=== PATIENT | male | born 1965 | race African-American/Black ===

== ENCOUNTER 2017-06-17 14:25 | Emergency (ER) | payer OTHER ==
[2017-06-17 14:51] VITALS: BP 136/85; PULSE 86; TEMP 98.2; BMI 31.0
--- NOTE | 2017-06-17 17:13 | PDOC ---
"History of Present Illness - General Chief Complaint: Pain Stated Complaint: SHOULDER PAIN Time Seen by Provider: 06/17/17 16:17 History Source: Patient Exam Limitations: No Limitations - History of Present Illness Initial Comments: 06/17/17 17:49 My chief complaint: Worsening neck and left shoulder pain History of present illness: Patient is a 52-year-old male with a history of hypertension and GERD today with complaints of worsening neck pain and left shoulder pain. Patient reports having surgery on his rotator cuff many years ago but pain has continued and is unrelieved by Naprosyn along with his neck pain of approximately 3 weeks. Patient reports that the pain from his neck is severe sharp radiates to the shoulder. Patient denies any radiation of pain down arms. His left arm or weakness. Patient reports going to see a neurologist on 06/15/2017 and was supposed to have an MRI of his neck soon along with some other tests that he does not remember with the names are. Patient is requesting something stronger for pain. 06/17/17 18:03 Timing/Duration: getting worse Severity: severe Associated Symptoms: reports: denies symptoms Past History - Past Medical History Allergies/Adverse Reactions: Allergies Allergy/AdvReac Type Severity Reaction Status Date / Time No Known Drug Allergies Allergy Verified 06/17/17 14:51 Home Medications: Ambulatory Orders Losartan Potassium 25 mg PO DAILY 08/01/15 Naproxen [Naprosyn -] 500 mg PO BID 06/17/17 Oxycodone HCl/Acetaminophen [Percocet 5-325 mg Tablet] 1 tab PO Q8H PRN #12 tablet MDD 3 06/17/17 Asthma: Yes Cardiac Disorders: No COPD: No Diabetes: No GI Disorders: Yes (GERD) Disorders: No HTN: Yes Kidney Stones: No Seizures: No - Surgical History Abdominal Surgery: No Appendectomy: No Cardiac Surgery: No Cholecystectomy: No Lung Surgery: No Neurologic Surgery: No Orthopedic Surgery: Yes (L shoulder sx 10/29 R ankle sx in 1997) - Reproductive History Testicular Surgery: No - Suicide/Smoking/Psychosocial Hx Smoking History: Current every day smoker Have you smoked in the past 12 months: Yes Number of Cigarettes Smoked Daily: 20 Information on smoking cessation initiated: Yes 'Breaking Loose' booklet given: 06/17/17 Hx Alcohol Use: No Drug/Substance Use Hx: No Substance Use Type: Cocaine, Marijuana Hx Substance Use Treatment: Yes (hx detox, rehab, in [facility]) Review of Systems - Review of Systems Able to Perform ROS?: Yes Constitutional: No: Symptoms Reported HEENTM: No: Symptoms Reported Respiratory: No: Symptoms reported Cardiac (ROS): No: Symptoms Reported ABD/GI: No: Symptoms Reported : No: Symptoms Reported Musculoskeletal: Yes: Joint Pain (left shoulder ), Neck Pain Integumentary: No: Symptoms Reported Neurological: No: Symptoms reported *Physical Exam - Vital Signs Last Vital Signs Temp Pulse Resp BP Pulse Ox 98.2 F 86 20 136/85 97 06/17/17 14:48 06/17/17 14:48 06/17/17 14:48 06/17/17 14:48 06/17/17 14:48 - Physical Exam General Appearance: Yes: Appropriately Dressed Neck: positive: Rigidity, Tender lateral (left ), Tender midline (proximal ). negative: Lymphadenopathy (R), Lymphadenopathy (L) Respiratory/Chest: positive: Lungs Clear, Normal Breath Sounds. negative: Chest Tender, Respiratory Distress Cardiovascular: positive: Regular Rhythm, Regular Rate, S1, S2 Integumentary: positive: Normal Color Neurologic: positive: Alert, Normal Response, Motor Strength 5/5 (b/l extremities), Respond to painful stimul (left arm ), Responsive. negative: Numbness, Sensory Deficit Medical Decision Making - Medical Decision Making 06/17/17 17:03 Patient is a 52-year-old male with a history of hypertension and GERD today with complaints of worsening neck pain and left shoulder pain. Patient reports having surgery on his rotator cuff many years ago but pain has continued and is unrelieved by Naprosyn along with his neck pain of approximately 3 weeks. Patient reports that the pain from his neck is severe sharp radiates to the shoulder. Patient denies any radiation of pain down arms. His left arm or weakness. Patient reports going to see a neurologist on 06/15/2017 and was supposed to have an MRI of his neck soon along with some other tests that he does not remember with the names are. Patient is requesting something stronger for pain. Neck pain left sided left shoulder pain PLAN: xray cervical no acute bessy abnormality noted percocet 5mg/325 mg one tab every 8 hrs prn severe pain only # 12 tabs This report was requested by: Jaelyn S Max | Reference #: [id number] There are no results for the search terms that you entered. Revise Search Terms Search Other States 2017 [facility] Department of Health - [place] [employer] 06/17/17 17:51 06/17/17 18:03 *DC/Admit/Observation/Transfer Diagnosis at time of Disposition: Cervical pain (neck), Chronic left shoulder pain - Discharge Dispostion Disposition: HOME Condition at time of disposition: Stable - Prescriptions Prescriptions: Oxycodone HCl/Acetaminophen [Percocet 5-325 mg Tablet] 1 tab PO Q8H PRN #12 tablet MDD 3 PRN Reason: Severe Pain - Referrals Referrals: Pearl Rose MD [Primary Care Provider] - Ciro Solano MD [Staff Physician] - - Patient Instructions Additional Instructions: Follow up with Your neurologist and orthopedist for further evaluation Avoid driving or doing anything that requires due to be alert when taking medication ordered for you today. Return to emergency room if symptoms worsen any numbness of her left arm or worsening pain or weakness of left arm Patient voiced understanding of discharge instructions and all questions were answered"
== END 2017-06-17 18:09 | disposition home or self-care (01) ==
LOC: JERFT 14:25
DX: M54.2 Cervicalgia (principal); M25.512 Pain in left shoulder; G89.29 Other chronic pain; I10 Essential (primary) hypertension; K21.9 Gastro-esophageal reflux disease without esophagitis; J45.909 Unspecified asthma, uncomplicated
CPT/HCPCS: 72050-TC; 99281-25

== ENCOUNTER 2017-09-02 14:56 | Emergency (ER) | payer OTHER ==
[2017-09-02 15:01] VITALS: BP 151/98; PULSE 99; TEMP 97.5; BMI 31.0
--- NOTE | 2017-09-02 15:44 | PDOC ---
History of Present Illness - General Chief Complaint: Ear Problem Stated Complaint: EAR PROBLEM Time Seen by Provider: 09/02/17 15:44 History Source: Patient Exam Limitations: No Limitations - History of Present Illness Initial Comments: 09/02/17 16:02 Patient came for evaluation of right ear pain 2 days. Denies fever, denies drainage, has suffered from a runny nose for the past few days. Is a smoker. has had problems in the past and had extensive ENT evaluation for months ago but was told there was no pathology to his ear and his chronic congestion was to be treated with nasal steroids. Patient has not used those sprays until yesterday. has pain, which is now radiating to his jaw and has some swelling to the right side of his neck/lymph nodes. Timing/Duration: unsure Severity: moderate Modifying Factors: improves with: cold therapy Associated Symptoms: reports: malaise. denies: fever/chills Past History - Past Medical History Allergies/Adverse Reactions: Allergies Allergy/AdvReac Type Severity Reaction Status Date / Time No Known Drug Allergies Allergy Verified 09/02/17 15:00 Home Medications: Ambulatory Orders Losartan Potassium 25 mg PO DAILY 08/01/15 Asthma: Yes Cardiac Disorders: No COPD: No Diabetes: No GI Disorders: Yes (GERD) Disorders: No HTN: Yes Kidney Stones: No Seizures: No - Surgical History Abdominal Surgery: No Appendectomy: No Cardiac Surgery: No Cholecystectomy: No Lung Surgery: No Neurologic Surgery: No Orthopedic Surgery: Yes (L shoulder sx 10/29 R ankle sx in 1997) - Reproductive History Testicular Surgery: No - Suicide/Smoking/Psychosocial Hx Smoking History: Current every day smoker Have you smoked in the past 12 months: Yes Number of Cigarettes Smoked Daily: 20 Information on smoking cessation initiated: No 'Breaking Loose' booklet given: 06/17/17 Hx Alcohol Use: No Drug/Substance Use Hx: No Substance Use Type: Cocaine, Marijuana Hx Substance Use Treatment: Yes (hx detox, rehab, in [facility]) *Physical Exam - Vital Signs Last Vital Signs Temp Pulse Resp BP Pulse Ox 97.5 F L 99 H 20 151/98 100 09/02/17 14:58 09/02/17 14:58 09/02/17 14:58 09/02/17 14:58 09/02/17 14:58 - Physical Exam General Appearance: Yes: Appropriately Dressed, Apparent Distress HEENT: positive: MARK, Normal ENT Inspection, Pharynx Normal, Rhinorrhea. negative: TMs Normal (right TM bulging, erythematous and unable to visualize landmarks. However TM is intact. Left TM is congested and landmarks visualized.) , Sinus Tenderness Neck: positive: Tender, Supple, Lymphadenopathy (R) Respiratory/Chest: positive: Lungs Clear Cardiovascular: positive: Regular Rate Extremity: positive: Normal Capillary Refill, Normal Inspection, Normal Range of Motion Integumentary: positive: Dry, Warm, Pale. 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, Fully Oriented, Alert, Normal Mood/ Affect, Normal Response, Motor Strength 5/5 *DC/Admit/Observation/Transfer Diagnosis at time of Disposition: Otitis media Qualifiers: Otitis media type: unspecified Chronicity: acute Qualified Code(s): H66.90 - Otitis media, unspecified, unspecified ear - Discharge Dispostion Disposition: HOME Condition at time of disposition: Stable Admit: No - Referrals Referrals: Pearl Rose MD [Primary Care Provider] - Estevan Avalos MD [Staff Physician] - - Patient Instructions Printed Discharge Instructions: Middle Ear Infection Additional Instructions: Rest, lots of fluids; water, teas, soups Saltwater girls and steamy showers Hot wet soaks to ear/hot packs may help relieve some pain Continue ibuprofen or Tylenol for pain and fevers Complete all antibiotics ear drops- 3 drops to affected ear 3 times a day for 5 days followup with private physician / ENT doctor in 2-3 days - Post Discharge Activity Forms/Work/School Notes: Back to Work
[2017-09-02] MEDS ORDERED: NEOMYCIN/POLYMYXN/HC OTIC SUSPENSION 10 ML BOTTLE AS ONE (16:01)
[2017-09-02] MEDS ORDERED: IBUPROFEN 600 MG TABLET (FP) PO ONE ×2 (16:02→16:04)
[2017-09-02] MEDS ORDERED: NEOMYCIN/POLYMYXN/HC OTIC SOLUTION 10 ML BOTTLE ONE (16:04)
== END 2017-09-02 16:24 | disposition home or self-care (01) ==
LOC: JERFT 14:56
DX: H66.91 Otitis media, unspecified, right ear (principal); I10 Essential (primary) hypertension; J45.909 Unspecified asthma, uncomplicated; K21.9 Gastro-esophageal reflux disease without esophagitis; F17.210 Nicotine dependence, cigarettes, uncomplicated
CPT/HCPCS: 99281-25

== ENCOUNTER 2018-02-15 07:37 | Emergency (ER) | payer OTHER ==
[2018-02-15 08:00] VITALS: BP 140/91; PULSE 72; TEMP 98; BMI 28.6
[2018-02-15] MEDS ORDERED: KETOROLAC TROMETHAMINE 60 MG/2 ML VIAL IM ONE (08:24)
[2018-02-15] MEDS ORDERED: KETOROLAC TROMETHAMINE 60 MG/2 ML VIAL ONE (08:28)
--- NOTE | 2018-02-15 08:30 | PDOC ---
History of Present Illness - General Chief Complaint: Head/Neck problem Stated Complaint: PAIN Time Seen by Provider: 02/15/18 08:15 History Source: Patient Exam Limitations: No Limitations - History of Present Illness Initial Comments: 02/15/18 17:46 c/o stiff neck woke up 2 days ago with same. pt with diff turning neck and pain to the left side going to shoulder. no chest pain denies headache or fever. Past History - Past Medical History Allergies/Adverse Reactions: Allergies Allergy/AdvReac Type Severity Reaction Status Date / Time No Known Drug Allergies Allergy Verified 02/15/18 07:54 Home Medications: Ambulatory Orders Losartan Potassium 25 mg PO DAILY 08/01/15 Cyclobenzaprine HCl [Flexeril -] 10 mg PO TID PRN #21 tablet 02/15/18 Asthma: Yes Cardiac Disorders: No COPD: No Diabetes: No GI Disorders: Yes (GERD) Disorders: No HTN: Yes Kidney Stones: No Seizures: No - Surgical History Abdominal Surgery: No Appendectomy: No Cardiac Surgery: No Cholecystectomy: No Lung Surgery: No Neurologic Surgery: No Orthopedic Surgery: Yes (L shoulder sx 10/29 R ankle sx in 1997) - Reproductive History Testicular Surgery: No - Suicide/Smoking/Psychosocial Hx Smoking History: Current every day smoker Have you smoked in the past 12 months: Yes Number of Cigarettes Smoked Daily: 20 Information on smoking cessation initiated: No 'Breaking Loose' booklet given: 06/17/17 Hx Alcohol Use: No Drug/Substance Use Hx: No Substance Use Type: Cocaine, Marijuana Hx Substance Use Treatment: Yes (hx detox, rehab, in [facility]) Review of Systems - Review of Systems Able to Perform ROS?: Yes Is the patient limited Syrian proficient: No Constitutional: No: Symptoms Reported HEENTM: No: Symptoms Reported Respiratory: No: Symptoms reported Cardiac (ROS): No: Symptoms Reported ABD/GI: No: Symptoms Reported : No: Symptoms Reported Musculoskeletal: Yes: Symptoms Reported *Physical Exam - Vital Signs Last Vital Signs Temp Pulse Resp BP Pulse Ox 98 F 72 16 140/91 96 02/15/18 07:54 02/15/18 07:54 02/15/18 07:54 02/15/18 07:54 02/15/18 07:54 - Physical Exam General Appearance: Yes: Nourished, Appropriately Dressed HEENT: positive: EOMI, MARK Neck: positive: Supple, Tender lateral (left side soft tissue tender, spasm noted to the posterior ) Respiratory/Chest: positive: Lungs Clear, Normal Breath Sounds Cardiovascular: positive: Regular Rhythm, Regular Rate Musculoskeletal: positive: Normal Inspection, Decreased Range of Motion, Muscle Spasm. negative: CVA Tenderness, CVA Tenderness (R), CVA Tenderness (L), Vertebral Tenderness Extremity: positive: Normal Capillary Refill, Normal Inspection, Normal Range of Motion Integumentary: positive: Normal Color, Dry, Warm Neurologic: positive: Fully Oriented, Alert, Normal Mood/Affect, Normal Response , Motor Strength 12/29 Medical Decision Making - Medical Decision Making 02/15/18 17:47 cc: stiff neck ttp soft tissue muscle spasm will give toradol dc with nsaid and flexeril *DC/Admit/Observation/Transfer Diagnosis at time of Disposition: Neck muscle strain Qualifiers: Encounter type: initial encounter Qualified Code(s): S16.1XXA - Strain of muscle, fascia and tendon at neck level, initial encounter - Discharge Dispostion Disposition: HOME Condition at time of disposition: Good - Prescriptions Prescriptions: Cyclobenzaprine HCl [Flexeril -] 10 mg PO TID PRN #21 tablet PRN Reason: Muscle Spasms - Referrals Referrals: Pearl Rose MD [Primary Care Provider] - - Patient Instructions Printed Discharge Instructions: DI for Muscle Strain Additional Instructions: apply warm compresses to the area of pain every 3-4hrs for 20 minutes take flexeril as directed for muscle spasm take the naprosyn for pain as directed - Post Discharge Activity
== END 2018-02-15 08:41 | disposition home or self-care (01) ==
LOC: JERFT 07:37
PROC: 3E0233Z Introduction of Anti-inflammatory into Muscle, Percutaneous Approach (ICD-10-PCS; principal; 2018-02-15)
DX: S16.1XXA Strain of muscle, fascia and tendon at neck level, initial encounter (principal); X58.XXXA Exposure to other specified factors, initial encounter; Y93.89 Activity, other specified; Y92.9 Unspecified place or not applicable; F17.210 Nicotine dependence, cigarettes, uncomplicated; K21.9 Gastro-esophageal reflux disease without esophagitis; I10 Essential (primary) hypertension; J45.909 Unspecified asthma, uncomplicated
CPT/HCPCS: 99281-25

== ENCOUNTER 2018-07-08 13:31 | Observation (INO) | payer OTHER ==
[2018-07-08 13:49] VITALS: BMI 28.3
[2018-07-08] MEDS ORDERED: ACETAMINOPHEN 325 MG TABLET (FP) PO ONE (14:23)
[2018-07-08] MEDS ORDERED: ACETAMINOPHEN 325 MG TABLET (FP) ONE (14:32)
--- NOTE | 2018-07-08 14:32 | PDOC ---
History of Present Illness - General Chief Complaint: Pain Stated Complaint: CHEST PAIN Time Seen by Provider: 07/08/18 14:03 History Source: Patient Exam Limitations: No Limitations - History of Present Illness Initial Comments: 07/08/18 16:03 This is a 53 year old male with a history of HTN, HLD, cocain and alcohol dependance (sober for three yrs), who presents with left anterior chest pain, pressure like, constant, with exertion and at rest for the past three days. Patient denies CERNA, blurry vision, sob, cough, pain with palpation of chest or movement, jaw pain, numbness, tingling, nausea, vomiting, abdominal pain, leg swelling, orthopnea. Take diclofenac daily for left shoulder pain from rotator cuff injury. Mother in age 60s with OR. PMH: HTN. 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 [employer] Past History - Past Medical History Allergies/Adverse Reactions: Allergies Allergy/AdvReac Type Severity Reaction Status Date / Time No Known Drug Allergies Allergy Verified 07/08/18 13:43 Home Medications: Ambulatory Orders Losartan Potassium 25 mg PO DAILY 08/01/15 Diclofenac Sodium [Voltaren -] 75 mg PO ASDIR 07/08/18 Gabapentin [Neurontin -] 600 mg PO HS 07/08/18 Omeprazole 40 mg PO DAILY 07/08/18 Pravastatin Sodium [Pravachol] mg PO HS 07/08/18 Asthma: Yes Cardiac Disorders: No COPD: No Diabetes: No GI Disorders: Yes (GERD) Disorders: No HTN: Yes Kidney Stones: No Seizures: No - Surgical History Abdominal Surgery: No Appendectomy: No Cardiac Surgery: No Cholecystectomy: No Lung Surgery: No Neurologic Surgery: No Orthopedic Surgery: Yes (L shoulder sx 10/29 R ankle sx in 1997) - Reproductive History Testicular Surgery: No - Suicide/Smoking/Psychosocial Hx Smoking History: Current every day smoker Have you smoked in the past 12 months: Yes Number of Cigarettes Smoked Daily: 20 Information on smoking cessation initiated: No 'Breaking Loose' booklet given: 06/17/17 Hx Alcohol Use: No Drug/Substance Use Hx: No Substance Use Type: Cocaine, Marijuana Hx Substance Use Treatment: Yes (hx detox, rehab, in [facility]) Review of Systems - Review of Systems Able to Perform ROS?: Yes Is the patient limited [place]orese proficient: No Constitutional: No: Chills, Diaphoresis, Fever, Loss of Appetite HEENTM: No: Blurred Vision Respiratory: No: Cough, Orthopnea, Shortness of Breath, Wheezing, Productive cough Cardiac (ROS): Yes: Chest Pain. No: Edema, Irregular Heart Rate, Lightheadedness, Palpitations, Syncope ABD/GI: No: Abdominal Distended, Blood Streaked Bowels, Constipated, Diarrhea, Nausea, Poor Appetite : No: Burning, Dysuria, Discharge Musculoskeletal: Yes: Back Pain, Joint Pain (left shoulder), Neck Pain (chronic) Neurological: No: Headache, Numbness, Paresthesia, Seizure, Weakness, Unsteady Gait *Physical Exam - Vital Signs Last Vital Signs Temp Pulse Resp BP Pulse Ox 98.1 F 80 18 149/102 H 99 07/08/18 13:48 07/08/18 13:48 07/08/18 13:48 07/08/18 13:48 07/08/18 13:48 - Physical Exam General Appearance: Yes: Appropriately Dressed. No: Alcohol on Breath, Intoxicated Respiratory/Chest: positive: Decreased Breath Sounds. negative: Rhonchi, Wheezing Cardiovascular: positive: Regular Rhythm, Regular Rate, S1, S2 Gastrointestinal/Abdominal: positive: Flat. negative: Tender Extremity: positive: Normal Inspection. 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 R/O ACS. Had stress test years ago that was negative. LEft shoulder pain seems not related to chest pain. #chest pain -cbc, bmp, cardiac profile -first trop negative -ecg nsr; no st-t- wave wave changes -given social history, risk factors and mother with sudden cardiac at age 60 form OR; will admit in observation; telemetry -cardiac consult; f/u second trop 07/08/18 16:20 *DC/Admit/Observation/Transfer Diagnosis at time of Disposition: Chest pain - Discharge Dispostion Condition at time of disposition: Fair Decision to Admit order: Yes - Referrals Referrals: Pearl Rose MD [Primary Care Provider] - - Patient Instructions - Post Discharge Activity
[2018-07-08 14:58] LABS: BASO % 0.8 % (0-2.0); EOS % 1.4 % (0-4.5); HEMATOCRIT 44.1 % (35.4-49); HEMOGLOBIN 14.7 GM/dL (11.7-16.9); LYMPH % 44.3 % (8-40); MCH 31.3 pg (25.7-33.7); MCHC 33.5 g/dl (32.0-35.9); MEAN CELL VOLUME 93.5 fl (80-96); MEAN PLT VOLUME 8.6 fl (7.5-11.1); MONO % 9.3 % (3.8-10.2); NEUT % 44.2 % (42.8-82.8); PLATELET COUNT 204 K/MM3 (134-434); RBC 4.71 M/mm3 (4.00-5.60); RDW 13.5 % (11.9-15.9); WHITE BLOOD COUNT 4.3 K/mm3 (4.0-10.0)
[2018-07-08 15:15] LABS: URINE APPEARANCE CLEAR; URINE BILIRUBIN NEGATIVE (<2.0 mg/dL); URINE COLOR LTYELLOW; URINE GLUCOSE (UA) NEGATIVE (NEGATIVE); URINE KETONE NEGATIVE (NEGATIVE); URINE LEUK ESTERASE NEGATIVE (NEGATIVE); URINE NITRITE NEGATIVE (NEGATIVE); URINE PROTEIN NEGATIVE (NEGATIVE); URINE UROBILINOGEN NEGATIVE mg/dL (0.2-1.0)
[2018-07-08] MEDS ORDERED: diazePAM 5 MG TABLET PO ONE (15:23)
[2018-07-08] MEDS ORDERED: DEXAMETHASONE SOD PHOSPHATE 20 MG/5 ML VIAL IVPB ONE (15:23)
--- NOTE | 2018-07-08 15:28 | PDOC ---
Attending Attestation - Resident Resident Name: Leslie Barriga - ED Attending Attestation I have performed the following: I have examined & evaluated the patient, The case was reviewed & discussed with the resident, I agree w/resident's findings & plan, Exceptions are as noted - HPI HPI: 07/08/18 15:24 53 yo M ho htn hld, chronic neck pain here today c/o worsenign neck shoulder pain and also chest pain. chest pain dull achy, left side, no radiation. has had for 3 days. left neck pain tension in trapezium, radiating to left arm. no new weakness , no new numbness. pain in neck is worse with moveemnt. has seen dr miller for this who does local injections in the past. states last was one month ago. does have h/o cocaine abuse, states last use was 3 yrs ago. did have a stress test many years ago. has family h/o luis felipe who from [place], DM in her 60's. - Physicial Exam PE: 07/08/18 15:26 awake alert lungs clear bilaterally heart rrr no mrg abd soft nt nd. ext wwp. left lateral trapezial spasm. 5/5 upper ext strength, sensation intact bilaterlly. alert oriented x 3. pulses upper and lower ext symmetric. skin warm and dry. - Medical Decision Making 07/08/18 15:27 differential acs, infection, vasospasm. tension radicular pain in trapezial muscle. nuerologically intact. plan muscle relaxer, steroids, ekg labs cxr. pt high risk and 3 risk facotrs ( smoking ht hld and family hx. ) will consider admission for obs tele.
[2018-07-08] MEDS ORDERED: DEXAMETHASONE SOD PHOSPHATE 10 MG/1 ML VIAL ONE (15:31)
[2018-07-08] MEDS ORDERED: diazePAM 5 MG TABLET ONE (15:32)
[2018-07-08 15:33] LABS: ALBUMIN 4.1 g/dl (3.4-5.0); ALK PHOS 79 U/L (45-117); ANION GAP 8 MMOL/L (8-16); BILIRUBIN,TOTAL 0.3 mg/dL (0.2-1); BLOOD UREA NITROGEN 18 mg/dL (7-18); CALCIUM 8.5 mg/dL (8.5-10.1); CHLORIDE 105 mmol/L (98-107); CO2 25 mmol/L (21-32); CREATININE 0.7 mg/dL (0.55-1.3); GLUCOSE,RANDOM 85 mg/dL (74-106); SGOT/AST 24 U/L (15-37); SGPT/ALT 60 U/L (13-61); SODIUM 138 mmol/L (136-145); TOT PROT 7.4 g/dl (6.4-8.2)
[2018-07-08 15:35] LABS: COCAINE, UR NEGATIVE ng/ml (CUTOFF=300); METHADONE, UR NEGATIVE ng/ml (CUTOFF=300); OPIATES, URI NEGATIVE ng/ml (CUTOFF=300); PHENCYCLIDINE,URINE NEGATIVE ng/ml (CUTOFF=25); URINE AMPHETAMINES NEGATIVE ng/ml (CUTOFF=500); URINE BARBITURATES NEGATIVE ng/ml (CUTOFF=200); URINE BENZODIAZEPINES NEGATIVE ng/ml (CUTOFF=200)
[2018-07-08] MEDS ORDERED: ASPIRIN 325 MG TABLET PO ONE (15:41)
[2018-07-08] MEDS ORDERED: ASPIRIN 325 MG ENTERIC COATED TABLET (FP) ONE (16:00)
--- NOTE | 2018-07-08 20:05 | HP ---
Admitting History and Physical - Primary Care Physician PCP: Brianna Hays - Admission History of Present Illness: 53 year old male with a history of HTN, HLD, cocain and alcohol dependance ( sober for three yrs), who presents with left anterior chest pain, pressure like , constant, with exertion and at rest for the past three days. Patient denies CERNA , blurry vision, sob, cough, pain with palpation of chest or movement, jaw pain , numbness, tingling, nausea, vomiting, abdominal pain, leg swelling, orthopnea. Take diclofenac daily for left shoulder pain from rotator cuff injury. Mother in age 60s with IA. - Past Medical History Cardiovascular: Yes: HTN, Hyperlipdemia - Smoking History Smoking history: Current every day smoker Have you smoked in the past 12 months: Yes Aproximately how many cigarettes per day: 20 - Alcohol/Substance Use Hx Alcohol Use: No Home Medications - Allergies Allergies/Adverse Reactions: Allergies Allergy/AdvReac Type Severity Reaction Status Date / Time No Known Drug Allergies Allergy Verified 07/08/18 13:43 - Home Medications Home Medications: Ambulatory Orders Losartan Potassium 25 mg PO DAILY 08/01/15 Diclofenac Sodium [Voltaren -] 75 mg PO ASDIR 07/08/18 Gabapentin [Neurontin -] 600 mg PO HS 07/08/18 Omeprazole 40 mg PO DAILY 07/08/18 Pravastatin Sodium [Pravachol] mg PO HS 07/08/18 Family Disease History - Family Disease History Family Disease History: Diabetes: Mother, Heart Disease: Mother Physical Examination Vital Signs: Vital Signs Temperature 98.1 F 07/08/18 13:48 Pulse Rate 83 07/08/18 19:32 Respiratory Rate 18 07/08/18 19:32 Blood Pressure 135/83 07/08/18 19:32 O2 Sat by Pulse Oximetry (%) 99 07/08/18 19:32 Constitutional: Yes: No Distress HENT: Yes: Atraumatic Neck: Yes: Supple Cardiovascular: Yes: Regular Rate and Rhythm Respiratory: Yes: CTA Bilaterally Gastrointestinal: Yes: Normal Bowel Sounds Extremities: Yes: WNL Edema: No Peripheral Pulses WNL: Yes Neurological: Yes: Alert, Oriented Labs: CBC, BMP 07/08/18 14:44 07/08/18 14:44 Imaging - Results X-ray: Report Reviewed Problem List - Problems (1) Chest pain Assessment/Plan: tele monitoring fu cardiac profile cardiology consult Code(s): R07.9 - CHEST PAIN, UNSPECIFIED (2) Alcohol dependence Assessment/Plan: will watch for withdrawl Code(s): F10.20 - ALCOHOL DEPENDENCE, UNCOMPLICATED (3) Cervical pain (neck) Assessment/Plan: chronic on pain meds prn Code(s): M54.2 - CERVICALGIA Assessment/Plan Laboratory Tests 07/08/18 07/08/18 07/08/18 14:44 14:44 14:44 WBC 4.3 RBC 4.71 Hgb 14.7 Hct 44.1 MCV 93.5 MCH 31.3 MCHC 33.5 RDW 13.5 Plt Count 204 MPV 8.6 Absolute Neuts (auto) 1.9 Neutrophils % 44.2 D Lymphocytes % 44.3 H D Monocytes % 9.3 Eosinophils % 1.4 D Basophils % 0.8 Nucleated RBC % 0 Sodium 138 Potassium 4.0 Chloride 105 Carbon Dioxide 25 Anion Gap 8 BUN 18 Creatinine 0.7 Creat Clearance w eGFR > 60 Random Glucose 85 Calcium 8.5 Total Bilirubin 0.3 AST 24 ALT 60 Alkaline Phosphatase 79 Creatine Kinase 222 Creatine Kinase Index 0.4 CK-MB (CK-2) < 1.0 Troponin I < 0.02 Total Protein 7.4 Albumin 4.1 Urine Color Ltyellow Urine Appearance Clear Urine pH 5.0 Ur Specific Hiram 1.015 Urine Protein Negative Urine Glucose (UA) Negative Urine Ketones Negative Urine Blood Negative Urine Nitrite Negative Urine Bilirubin Negative Urine Urobilinogen Negative Ur Leukocyte Esterase Negative Opiates Screen Methadone Screen Barbiturate Screen Phencyclidine Screen Ur Amphetamines Screen MDMA (Ecstasy) Screen Benzodiazepines Screen Cocaine Screen U Marijuana (THC) Screen 07/08/18 07/08/18 14:44 15:04 WBC RBC Hgb Hct MCV MCH MCHC RDW Plt Count MPV Absolute Neuts (auto) Neutrophils % Lymphocytes % Monocytes % Eosinophils % Basophils % Nucleated RBC % Sodium Potassium Chloride Carbon Dioxide Anion Gap BUN Creatinine Creat Clearance w eGFR Random Glucose Calcium Total Bilirubin AST ALT Alkaline Phosphatase Creatine Kinase Cancelled Creatine Kinase Index CK-MB (CK-2) Troponin I Cancelled Total Protein Albumin Urine Color Urine Appearance Urine pH Ur Specific Hiram Urine Protein Urine Glucose (UA) Urine Ketones Urine Blood Urine Nitrite Urine Bilirubin Urine Urobilinogen Ur Leukocyte Esterase Opiates Screen Negative Methadone Screen Negative Barbiturate Screen Negative Phencyclidine Screen Negative Ur Amphetamines Screen Negative MDMA (Ecstasy) Screen Negative Benzodiazepines Screen Negative Cocaine Screen Negative U Marijuana (THC) Screen Negative
[2018-07-08] MEDS ORDERED: GABAPENTIN 300 MG CAPSULE (FP) PO SCH (22:00)
[2018-07-08] MEDS: oxyCODONE HCL 5 MG TABLET PO PRN (22:07)
[2018-07-09] MEDS: oxyCODONE HCL 5 MG TABLET PO PRN (03:17)
[2018-07-09 06:41] LABS: BASO % 0.1 % (0-2.0); HEMATOCRIT 43.7 % (35.4-49); HEMOGLOBIN 14.7 GM/dL (11.7-16.9); LYMPH % 13.5 % (8-40); MCH 31.6 pg (25.7-33.7); MCHC 33.7 g/dl (32.0-35.9); MEAN CELL VOLUME 93.7 fl (80-96); MEAN PLT VOLUME 8.9 fl (7.5-11.1); MONO % 4.3 % (3.8-10.2); NEUT % 82.1 % (42.8-82.8); PLATELET COUNT 220 K/MM3 (134-434); RBC 4.66 M/mm3 (4.00-5.60); RDW 13.4 % (11.9-15.9); WHITE BLOOD COUNT 7.5 K/mm3 (4.0-10.0)
[2018-07-09 07:06] LABS: ALBUMIN 3.8 g/dl (3.4-5.0); ALK PHOS 73 U/L (45-117); ANION GAP 7 MMOL/L (8-16); BILIRUBIN,TOTAL 0.3 mg/dL (0.2-1); BLOOD UREA NITROGEN 17 mg/dL (7-18); CALCIUM 9.2 mg/dL (8.5-10.1); CHLORIDE 103 mmol/L (98-107); CO2 26 mmol/L (21-32); CREATININE 0.7 mg/dL (0.55-1.3); GLUCOSE,RANDOM 119 mg/dL (74-106); POTASSIUM 4.5 mmol/L (3.5-5.1); SGOT/AST 19 U/L (15-37); SGPT/ALT 55 U/L (13-61); SODIUM 135 mmol/L (136-145); TOT PROT 7.4 g/dl (6.4-8.2)
[2018-07-09 09:46] VITALS: PULSE 60; TEMP 98
[2018-07-09] MEDS ORDERED: LOSARTAN POTASSIUM 25 MG TABLET PO SCH (10:00)
--- NOTE | 2018-07-09 10:43 | CON.NEURO ---
Consult Consult Specialty:: Loyda Referred by:: PCP Reason for Consultation:: Pain - Past Medical History Cardio/Vascular: Yes: HTN, Hyperlipdemia - Alcohol/Substance Use Hx Alcohol Use: No - Smoking History Smoking history: Current every day smoker Have you smoked in the past 12 months: Yes Aproximately how many cigarettes per day: 20 Home Medications - Allergies Allergies/Adverse Reactions: Allergies Allergy/AdvReac Type Severity Reaction Status Date / Time No Known Drug Allergies Allergy Verified 07/08/18 13:43 - Home Medications Home Medications: Ambulatory Orders Losartan Potassium 25 mg PO DAILY 08/01/15 Diclofenac Sodium [Voltaren -] 75 mg PO ASDIR 07/08/18 Gabapentin [Neurontin -] 600 mg PO HS 07/08/18 Omeprazole 40 mg PO DAILY 07/08/18 Pravastatin Sodium [Pravachol] mg PO HS 07/08/18 Family Disease History - Family Disease History Family Disease History: Diabetes: Mother, Heart Disease: Mother Physical Exam-Neuro Vital Signs: Vital Signs Temperature 98 F 07/09/18 09:45 Pulse Rate 60 07/09/18 09:45 Respiratory Rate 20 07/09/18 09:45 Blood Pressure 140/82 07/09/18 09:45 O2 Sat by Pulse Oximetry (%) 98 07/08/18 20:30 Labs: CBC, BMP 07/09/18 05:30 07/09/18 05:30
--- NOTE | 2018-07-09 11:03 | PN ---
Progress Note (short form) - Note Progress Note: Chief Complaint: Events noted, notes reviewed, denies any further chest pain, complaining of persistent left shoulder discomfort History of Present Illness: Patient seen and examined on telemetry. Events noted, notes reviewed, denies any further chest pain, complaining of persistent left shoulder discomfort - Current Medication List Current Medications: Active Medications Current Medications Diclofenac Sodium (Voltaren -) 25 mg PO ONCE ONE Stop: 07/09/18 10:45 Gabapentin (Neurontin -) 600 mg PO HS COUNTS INCLUDE 234 BEDS AT THE [facility] Last Admin: 07/08/18 21:00 Dose: 600 mg Losartan Potassium (Cozaar -) 25 mg PO DAILY COUNTS INCLUDE 234 BEDS AT THE [facility] Last Admin: 07/09/18 09:44 Dose: 25 mg Oxycodone HCl (Roxicodone -) 10 mg PO Q6H PRN PRN Reason: PAIN Last Admin: 07/09/18 03:17 Dose: 10 mg - Review of Systems Constitutional: denies: Chills, Fever Cardiovascular: As noted above Respiratory: denies: Cough or Sputum Production Gastrointestinal: denies: Nausea, Vomiting, Diarrhea, Constipation or Abdominal Pain Genitourinary: denies: Dysuria, Hematuria Neurological: denies: Dizziness - Objective Vital Signs: Last Vital Signs Temp Pulse Resp BP Pulse Ox 98 F 60 20 140/82 98 07/09/18 09:45 07/09/18 09:45 07/09/18 10:43 07/09/18 09:45 07/09/18 10:43 Intake & Output 07/06/18 07/07/18 07/08/18 07/09/18 23:59 23:59 23:59 23:59 Weight 192 lb Neck: Supple Negative JVD Cardiovascular: S1 S2 Regularly Rate and Rhythm No Murmurs Respiratory: Clear to A&P Bilaterally Gastrointestinal: Soft Benign Normal Bowel Sounds Ext: No Edema Labs: CBC, BMP 07/09/18 05:30 07/09/18 05:30 Troponin, BNP 07/08/18 07/08/18 07/08/18 14:44 14:44 21:30 Troponin I < 0.02 Cancelled < 0.02 Assessment/Plan ASSESSMENT: 1. Chest pain syndrome atypical for coronary artery disease, angina pectoris 2. HTN 3. Hypercholesterolemia 4. Degenerative cervical disc disease with radiculopathy 5. Degenerative lumber disc disease with radiculopathy 6. Tobacco abuse 7. History of alcohol and drug abuse PLAN: 1. Continue Cozaar 2. Add B-Blockers 3. Add ASA 4. Add Lipitor 5. Counselled smoking cessation and abstinence 6. Can be D/C home from the cardiovascular point of view, further testing/ evaluation as outpatient including echocardiography and MPI study Thank you for the consult Faustino Mart MD
[2018-07-09] MEDS ORDERED: DICLOFENAC SODIUM 25 MG TABLET.DR PO ONE (11:30)
[2018-07-09] MEDS ORDERED: ASPIRIN COATED 81 MG TABLET.EC PO SCH (11:30)
[2018-07-09] MEDS ORDERED: metoPROLOL SUCCINATE 25 MG TAB.SR.24H (FP) PO SCH (11:30)
[2018-07-09] MEDS ORDERED: PT OWN MED DRAWER 7, Y5N ONE (11:43)
--- NOTE | 2018-07-09 11:47 | DS ---
Physical Examination Vital Signs: Vital Signs Temperature 98 F 07/09/18 09:45 Pulse Rate 60 07/09/18 09:45 Respiratory Rate 20 07/09/18 10:43 Blood Pressure 140/82 07/09/18 09:45 O2 Sat by Pulse Oximetry (%) 98 07/09/18 10:43 Constitutional: Yes: No Distress HENT: Yes: Atraumatic Neck: Yes: Supple Cardiovascular: Yes: Regular Rate and Rhythm Respiratory: Yes: CTA Bilaterally Gastrointestinal: Yes: Normal Bowel Sounds Extremities: Yes: WNL Edema: No Peripheral Pulses WNL: Yes Neurological: Yes: Alert, Oriented Labs: CBC, BMP 07/09/18 05:30 07/09/18 05:30 Discharge Summary Reason For Visit: CHEST PAIN Current Active Problems Chest pain (Acute) Condition: Fair - Instructions Referrals: Pearl Rose MD [Primary Care Provider] - Disposition: HOME - Home Medications Comprehensive Discharge Medication List: Ambulatory Orders Losartan Potassium 25 mg PO DAILY 08/01/15 Diclofenac Sodium [Voltaren -] 75 mg PO ASDIR 07/08/18 Gabapentin [Neurontin -] 600 mg PO HS 07/08/18 Omeprazole 40 mg PO DAILY 07/08/18 Pravastatin Sodium [Pravachol] mg PO HS 07/08/18 cleared by cardiology to be dc
[2018-07-09 11:56] VITALS: BP 133/87
--- NOTE | 2018-07-09 12:01 | CONS ---
DATE OF CONSULTATION: 07/09/2018 REQUESTING PHYSICIAN: Brianna Hays MD CHIEF COMPLAINT: Chest discomfort, cardiovascular evaluation. This is a 53-year-old male with known history of hypertensive cardiovascular disease, hypercholesterolemia, abnormal hemoglobin A1c by history, tobacco abuse, family history of coronary artery disease, degenerative cervical disk disease with cervical radiculopathy, degenerative lumbosacral disk disease with lumbar radiculopathy, degenerative left shoulder disease, who presented to [facility] Emergency Room with worsening left shoulder discomfort and, in addition, reported left-sided chest discomfort. Left shoulder discomfort was exacerbated with certain movements. Left chest discomfort was described as heaviness which was exacerbated by tobacco abuse and not by physical exertion. Patient denied any associated symptomatology, i.e. diaphoresis. Patient denies any dyspnea, orthopnea, paroxysmal nocturnal dyspnea, or peripheral edema. Patient denied any palpitations, dizziness, lightheadedness, or syncope. Patient denied any fatigue or tiredness. Currently, patient is symptom-free. PAST MEDICAL HISTORY: Hypertensive cardiovascular disease, hypercholesterolemia, abnormal hemoglobin A1c, degenerative lumbosacral disk disease with cervical radiculopathy, degenerative lumbosacral disk disease with lumbar radiculopathy, and degenerative left shoulder disease. PAST SURGICAL HISTORY: Shoulder surgery. SOCIAL HISTORY: A smoker. Prior history of drug and alcohol abuse. FAMILY HISTORY: Positive for coronary artery disease. ALLERGIES: None reported. MEDICAL THERAPY: Currently includes diclofenac 25 mg once a day, Neurontin 600 mg once a day, Cozaar 25 mg once a day, oxycodone 10 mg every 6 hours as needed. REVIEW OF SYSTEMS: Head and Neck: Denies headache, photophobia, blurring of vision. Respiratory: No cough or sputum production. Cardiovascular: As noted above. Gastrointestinal: Denies nausea, vomiting, diarrhea, abdominal discomfort. Genitourinary: No symptoms reported. Musculoskeletal: As noted above. PHYSICAL EXAMINATION: Vital Signs: Blood pressure 140/82 mmHg, pulse rate is 60 beats per minute, temperature 98 Fahrenheit. Head and Neck: Pupils equal and reactive to light and accommodation. Extraocular muscles are intact. Anicteric sclerae. Negative JVD. No bruit appreciated. Chest: Clear to auscultation and percussion. Cardiovascular: S1 and S2 regular. No murmur, clicks, or gallops. Abdomen: Soft, benign. Normoactive bowel sounds. Extremities: Negative edema. Intact distal pulses. No calf tenderness. Electrocardiogram revealed sinus, within normal limit. CPK and troponin-I levels were noted. CBC revealed a white cell count of 7.5, hemoglobin 14.7, platelet count 220. Basic metabolic profile revealed sodium 135, potassium 4.5, BUN 17, creatinine 0.7, glucose 119. ASSESSMENT: 1. Chest pain syndrome, atypical for coronary artery disease, angina pectoris with no evidence of acute coronary syndrome. 2. Hypertensive cardiovascular disease. 3. Hypercholesterolemia. 4. Degenerative cervical disk disease with cervical radiculopathy. 5. Degenerative lumbosacral disk disease with lumbar radiculopathy. 6. Tobacco abuse. 7. History of alcohol and drug abuse. RECOMMENDATION: 1. Continuation of Cozaar. 2. Addition of beta-blockers. 3. Addition of aspirin. 4. Addition of Lipitor. 5. Patient was strongly counseled smoking cessation and abstinence. 6. Patient can be discharged home from the cardiovascular point of view for further evaluation and testing as outpatient. Thank you for the kind referral. DAVID FALL M.D. [id number]
--- NOTE | 2018-07-09 16:33 | EKG ---
Test Reason : Blood Pressure : / mmHG Vent. Rate : 073 BPM Atrial Rate : 073 BPM P-R Int : 136 ms QRS Dur : 096 ms QT Int : 390 ms P-R-T Axes : 038 022 021 degrees QTc Int : 429 ms NORMAL SINUS RHYTHM NORMAL ECG WHEN COMPARED WITH ECG OF 30-SEP-2015 17:30, COMPARED TO EKG NO SIGNIFICANT CHANGE IS FOUND Confirmed by MD Becki, Oscar ([id number]) on 07/09/2018 4:33:00 PM Referred By: Confirmed By:Oscar Connell MD
[2018-07-09] MEDS ORDERED: ATORVASTATIN CA 20 MG TABLET (FP) PO SCH (22:00)
== END 2018-07-09 13:21 | disposition home or self-care (01) ==
LOC: JER 13:31 → JERBED 16:20 → J4W 20:39
PROVIDERS: ADMIT Internal Medicine; ATTEND Internal Medicine
PROC: 3E033NZ Introduction of Analgesics, Hypnotics, Sedatives into Peripheral Vein, Percutaneous Approach (ICD-10-PCS; principal; 2018-07-08)
DX: R07.9 Chest pain, unspecified (principal); I10 Essential (primary) hypertension; E78.5 Hyperlipidemia, unspecified; K21.9 Gastro-esophageal reflux disease without esophagitis; F17.210 Nicotine dependence, cigarettes, uncomplicated; M50.10 Cervical disc disorder with radiculopathy, unspecified cervical region; M51.16 Intervertebral disc disorders with radiculopathy, lumbar region; F10.21 Alcohol dependence, in remission; F14.21 Cocaine dependence, in remission
CPT/HCPCS: 36415; 71045-TC-FY; 80053; 80307; 81003; 82550; 82553; 84484; 85025; 93005; 93010; 96374; 99283-25; G0378

== ENCOUNTER 2018-10-13 05:01 | Emergency (ER) | payer OTHER ==
--- NOTE | 2018-10-13 05:24 | PDOC ---
History of Present Illness - General Stated Complaint: CHEST CONGESTION Time Seen by Provider: 10/13/18 05:23 - History of Present Illness Initial Comments: 10/13/18 05:47 53 yr old man with HTN, HLD, current everyday smoker, presents with productive cough with yellow sputum and midsternal "fullness" since a/w with night sweats since this morning. sick contact with cousin who was recently dx'd with flu(pt is unsure if it was by a dr). has short 1 episode of nonsustained tachycardia yesterday. denies n/v, fevers, abdominal pain, diarrhea, constipation, poor appetite, myalgia rash, sore throat. had cardiac cath 2 months ago that showed plaque, did not receive any stents pmhx: HTN, HLD, asthma, gerd Surghx: hernia repair, left rotator cuff soc hx: current everyday smoker, former cocaine and etoh use, last use 2014. works in [place] PCP: dr. remy Cardio: Dr. Dickson fmhx: [place] and DMII in parents age 60's Past History - Travel Traveled outside of the country in the last 30 days: No Close contact w/someone who was outside of country & ill: No - Past Medical History Allergies/Adverse Reactions: Allergies Allergy/AdvReac Type Severity Reaction Status Date / Time No Known Drug Allergies Allergy Verified 07/08/18 13:43 Home Medications: Ambulatory Orders Diclofenac Sodium [Voltaren -] 75 mg PO ASDIR 07/08/18 Gabapentin [Neurontin -] 600 mg PO HS 07/08/18 Omeprazole 40 mg PO DAILY 07/08/18 Aspirin [Ecotrin] 81 mg PO DAILY 10/13/18 Atorvastatin Calcium 40 mg PO HS 10/13/18 Losartan Potassium 100 mg PO DAILY 10/13/18 Asthma: Yes Cardiac Disorders: No COPD: No Diabetes: No GI Disorders: Yes (GERD) Disorders: No HTN: Yes Kidney Stones: No Seizures: No - Surgical History Abdominal Surgery: No Appendectomy: No Cardiac Surgery: No Cholecystectomy: No Lung Surgery: No Neurologic Surgery: No Orthopedic Surgery: Yes (L shoulder sx 10/29 R ankle sx in 1997) - Reproductive History Testicular Surgery: No - Suicide/Smoking/Psychosocial Hx Smoking History: Current every day smoker Have you smoked in the past 12 months: Yes Number of Cigarettes Smoked Daily: 20 'Breaking Loose' booklet given: 06/17/17 Hx Alcohol Use: No Drug/Substance Use Hx: No Substance Use Type: Cocaine, Marijuana Hx Substance Use Treatment: Yes (hx detox, rehab, in [facility]) Review of Systems - Review of Systems Constitutional: Yes: Night Sweats, Weight Stable. No: Chills, Fever, Loss of Appetite HEENTM: No: Ear Pain, Tinnitus, Throat Pain Respiratory: Yes: Productive cough. No: SOB with Exertion, Hemoptysis Cardiac (ROS): Yes: Palpitations, Chest Tightness. No: Chest Pain, Edema, Lightheadedness, Syncope ABD/GI: No: Nausea, Vomiting, Abdominal cramping : No: Dysuria, Hematuria Musculoskeletal: No: Muscle Pain, Muscle Weakness Integumentary: No: Erythema, Rash Neurological: No: Headache *Physical Exam - Physical Exam General Appearance: Yes: Appropriately Dressed HEENT: positive: EOMI, MARK, Pharynx Normal, Other (nares with dried mucus, voice sounds congested) Neck: positive: Normal Thyroid, Supple. negative: Lymphadenopathy (R), Lymphadenopathy (L), Thyromegaly Respiratory/Chest: positive: Lungs Clear, Normal Breath Sounds, Other (chest is nontender to palpation). negative: Crackles, Rhonchi, Wheezing Cardiovascular: positive: Regular Rhythm, Regular Rate, S1, S2. negative: Murmur Gastrointestinal/Abdominal: positive: Soft. negative: Tenderness Musculoskeletal: negative: CVA Tenderness Extremity: positive: Other (trace edema b/l LE). negative: Calf Tenderness Integumentary: negative: Clammy, Rash Neurologic: positive: Fully Oriented, Alert ED Treatment Course - LABORATORY CBC & Chemistry Diagram: 10/13/18 07:52 10/13/18 07:52 Medical Decision Making - Medical Decision Making 10/13/18 06:14 53 yr old man with HTN, current everyday smoker presents with chest congestion for past 3 days a/w night sweats. will check flu swab, cxy to r/o infiltrate, ekg given cardiac hx. will check one cardiac profile to r/o cardiac involvement(has HTN, HLD, and smokes, 3 risk factors) likely viral syndrome if cxy is unrevealing. 10/13/18 06:21 EKG without acute ischemic changes on my read, sinus kei with QTc of 421. 10/13/18 07:00 signout provided to oncoming resident, Dr. Rodriges to f/u on pending flu swab, and cardiac profile and disposition. *DC/Admit/Observation/Transfer Diagnosis at time of Disposition: Atypical chest pain, Elevated troponin - Discharge Dispostion Disposition: HOME Condition at time of disposition: Good - Referrals Referrals: Pearl Remy MD [Primary Care Provider] - - Patient Instructions Printed Discharge Instructions: DI for Atypical Chest Pain Additional Instructions: You were seen today for sensation of chest congestion in the center of your chest. Your xray did not show signs of pneumonia. Your initial blood work showed a slight elevation in your cardiac enzyme. The repeat cardiac enzyme test was negative. Your EKG was normal. Your chest pain is not likely to be related to your heart, but you should follow up with your e commerce solution architect within the next 3-4 days. You will need to call to make an appointment. A copy of your test results is attached to this packet. Take it with you to the appointment so your doctor can review it. Go to the nearest emergency department if your condition worsens or you feel like you need additional emergency evaluation. Print Language: VATICAN CITIZEN - Post Discharge Activity
--- NOTE | 2018-10-13 05:25 | PDOC ---
Attending Attestation - Resident Resident Name: Walter Perdomo - ED Attending Attestation I have performed the following: I have examined & evaluated the patient, The case was reviewed & discussed with the resident, I agree w/resident's findings & plan - HPI HPI: 10/13/18 06:34 Pt comes with chest pain.MSCP; non-susteained tachy x 1 last night He is 50+ a smoker, HTN and he complains that symptoms are ongoing for 24hrs. We will check a cardiac enzyme and CXR. - Physicial Exam PE: 10/13/18 07:05 Afebrile Agree with resident exam - Medical Decision Making 10/13/18 07:06 EKG normal CXR pending Cardiac profile pending Influenza swab pending
[2018-10-13 06:07] VITALS: BMI 29.5
--- NOTE | 2018-10-13 07:21 | PDOC ---
*Physical Exam - Vital Signs Last Vital Signs Temp Pulse Resp BP Pulse Ox 98.2 F 70 18 143/99 99 10/13/18 05:48 10/13/18 05:48 10/13/18 05:48 10/13/18 05:48 10/13/18 05:48 - Physical Exam General Appearance: Yes: Appropriately Dressed. No: Apparent Distress HEENT: positive: Normal Voice Neck: positive: Supple Respiratory/Chest: positive: Lungs Clear, Normal Breath Sounds. negative: Respiratory Distress Cardiovascular: positive: Regular Rhythm, Regular Rate. negative: Bradycardia, Tachycardia, Diastolic Murmur, Systolic Murmur ED Treatment Course - LABORATORY CBC & Chemistry Diagram: 10/13/18 07:52 10/13/18 07:52 - ADDITIONAL ORDERS Additional order review: Laboratory Results 10/13/18 06:06 Creatine Kinase 138 Troponin I 0.06 H Medical Decision Making - Medical Decision Making 10/13/18 07:00 Received sign out from resident Dr. Perdomo. In short, pt is a 53 y/ o male complaining of sensation of substernal chest full for the past day with a productive cough (yellow sputum). Active smoker. Cousin was diagnosed with influenza. EKG unremarkable for ectopy. Will follow up on influenza swab, CXR, and troponin. CXR unremarkable for acute cardiopulmonary process. CBC unremarkable for anemia or leukocytosis. BMP unremarkable for significant electrolyte derangement. Initial troponin mildly elevated. Repeat three hour troponin was negative. Normal renal function. Low suspicion for ACS given unchanged and normal EKG as well as recent reportedly normal cath. However, difficult to give cause to the initial troponin. Will admit for observation given risk factors. 10/13/18 10:15 Telephone consultation with Liyah Najera Attending. Verbally appraised of the pts HPI, ED course, and current plan of management. Does not feel this patient's condition warrants admission. Requests pt's acetaldehyde converter operator be consulted. 10/13/18 10:[address] Mccurdy, acetaldehyde converter operator covering for Dr. Mart. Verbally appraised of the pts HPI, ED course, and current plan of management. Given recent reportedly negative cardiac catheterization and negative repeat troponin, suspect the pt's symptoms are not likely to be ACS. Does not feel this pt would benefit from admission from a cardiac standpoint. Pt left department prior to receiving CXR. Called with question and encouraged to return for study. Pt returned. Image obtained. Pt provided reported. Again discussed imaging and laboratory results. Provided return precautions. Left department without further incident. *DC/Admit/Observation/Transfer Diagnosis at time of Disposition: Atypical chest pain, Elevated troponin - Discharge Dispostion Disposition: HOME Condition at time of disposition: Good Decision to Admit order: No - Referrals Referrals: Pearl Rose MD [Primary Care Provider] - - Patient Instructions Printed Discharge Instructions: DI for Atypical Chest Pain Additional Instructions: You were seen today for sensation of chest congestion in the center of your chest. Your xray did not show signs of pneumonia. Your initial blood work showed a slight elevation in your cardiac enzyme. The repeat cardiac enzyme test was negative. Your EKG was normal. Your chest pain is not likely to be related to your heart, but you should follow up with your acetaldehyde converter operator within the next 3-4 days. You will need to call to make an appointment. A copy of your test results is attached to this packet. Take it with you to the appointment so your doctor can review it. Go to the nearest emergency department if your condition worsens or you feel like you need additional emergency evaluation. Print Language: STATELESS - Post Discharge Activity
[2018-10-13] MEDS ORDERED: ASPIRIN 81 MG CHEWABLE TABLETS PO ONE (07:27)
[2018-10-13] MEDS ORDERED: ASPIRIN 81 MG CHEWABLE TABLETS ONE (07:45)
[2018-10-13 08:08] LABS: BASO % 0.7 % (0-2.0); EOS % 0.8 % (0-4.5); HEMOGLOBIN 15.3 GM/dL (11.7-16.9); LYMPH % 32.4 % (8-40); MCH 33.8 pg (25.7-33.7); MCHC 35.6 g/dl (32.0-35.9); MEAN PLT VOLUME 8.9 fl (7.5-11.1); MONO % 10.7 % (3.8-10.2); NEUT % 55.4 % (42.8-82.8); PLATELET COUNT 225 K/MM3 (134-434); RBC 4.53 M/mm3 (4.00-5.60); RDW 13.5 % (11.9-15.9); WHITE BLOOD COUNT 5.6 K/mm3 (4.0-10.0)
[2018-10-13 08:33] LABS: ANION GAP 5 MMOL/L (8-16); BLOOD UREA NITROGEN 23 mg/dL (7-18); CALCIUM 8.5 mg/dL (8.5-10.1); CHLORIDE 109 mmol/L (98-107); CO2 26 mmol/L (21-32); CREATININE 0.8 mg/dL (0.55-1.3); GLUCOSE,RANDOM 93 mg/dL (74-106); POTASSIUM 4.3 mmol/L (3.5-5.1); SODIUM 140 mmol/L (136-145)
[2018-10-13 09:21] VITALS: BP 125/82; PULSE 67; TEMP 98
--- NOTE | 2018-10-13 12:45 | EKG ---
Test Reason : Blood Pressure : / mmHG Vent. Rate : 076 BPM Atrial Rate : 076 BPM P-R Int : 134 ms QRS Dur : 092 ms QT Int : 398 ms P-R-T Axes : 044 017 017 degrees QTc Int : 447 ms NORMAL SINUS RHYTHM NORMAL ECG WHEN COMPARED WITH ECG OF 13-OCT-2018 06:54, NO SIGNIFICANT CHANGE WAS FOUND Confirmed by SEBAS SCOTT MD ([id number]) on 10/13/2018 12:44:53 PM Referred By: Confirmed By:SEBAS SCOTT MD
--- NOTE | 2018-10-13 12:46 | EKG ---
Test Reason : Blood Pressure : / mmHG Vent. Rate : 059 BPM Atrial Rate : 059 BPM P-R Int : 132 ms QRS Dur : 098 ms QT Int : 426 ms P-R-T Axes : 054 044 029 degrees QTc Int : 421 ms SINUS BRADYCARDIA OTHERWISE NORMAL ECG WHEN COMPARED WITH ECG OF 08-JUL-2018 13:49, NO SIGNIFICANT CHANGE WAS FOUND Confirmed by SEBAS SCOTT MD ([id number]) on 10/13/2018 12:46:24 PM Referred By: Confirmed By:SEBAS SCOTT MD
== END 2018-10-13 11:12 | disposition home or self-care (01) ==
LOC: JER 05:01
DX: R07.9 Chest pain, unspecified (principal); R74.8 Abnormal levels of other serum enzymes; I10 Essential (primary) hypertension; E78.5 Hyperlipidemia, unspecified; K21.9 Gastro-esophageal reflux disease without esophagitis; J45.909 Unspecified asthma, uncomplicated; F17.210 Nicotine dependence, cigarettes, uncomplicated; Z98.61 Coronary angioplasty status
CPT/HCPCS: 36415; 71046-TC-FY; 80048; 82550; 84484; 85025; 87804; 93005; 93010; 99284-25

== ENCOUNTER 2019-01-10 16:07 | Emergency (ER) | payer OTHER ==
--- NOTE | 2019-01-10 16:13 | PDOC ---
Rapid Medical Evaluation Chief Complaint: Injury Time Seen by Provider: 01/10/19 16:10 Medical Evaluation: Allergies Allergy/AdvReac Type Severity Reaction Status Date / Time No Known Drug Allergies Allergy Verified 07/08/18 13:43 01/10/19 16:10 I have performed a brief in-person evaluation of this patient. The patient presents with a chief complaint of: crush injury to right 3rd digit Pertinent physical exam findings: PAIN TO distal phalynx ~ 50% sugungal hematoma I have ordered the following: XraY [id number] FINGER The patient will proceed to the ED for further evaluation. 01/10/19 16:12
[2019-01-10 16:14] VITALS: BP 162/99; PULSE 94; TEMP 97.8; BMI 30.2
[2019-01-10] MEDS ORDERED: IBUPROFEN 400 MG TABLET (FP) PO ONE ×2 (16:53→16:55)
--- NOTE | 2019-01-10 17:04 | PDOC ---
History of Present Illness - General Chief Complaint: Injury Stated Complaint: INJURY TO FINGER Time Seen by Provider: 01/10/19 16:10 History Source: Patient - History of Present Illness Occurred: reports: just prior to arrival Pain Location: reports: upper extremity Method of Injury: Yes: direct blow Past History - Past Medical History Allergies/Adverse Reactions: Allergies Allergy/AdvReac Type Severity Reaction Status Date / Time No Known Drug Allergies Allergy Verified 01/10/19 16:21 Home Medications: Ambulatory Orders Diclofenac Sodium [Voltaren -] 75 mg PO ASDIR 07/08/18 Gabapentin [Neurontin -] 600 mg PO HS 07/08/18 Omeprazole 40 mg PO DAILY 07/08/18 Aspirin [Ecotrin] 81 mg PO DAILY 10/13/18 Atorvastatin Calcium 40 mg PO HS 10/13/18 Losartan Potassium 100 mg PO DAILY 10/13/18 Asthma: Yes Cardiac Disorders: No COPD: No Diabetes: No GI Disorders: Yes (GERD) Disorders: No HTN: Yes Kidney Stones: No Seizures: No - Surgical History Abdominal Surgery: No Appendectomy: No Cardiac Surgery: No Cholecystectomy: No Lung Surgery: No Neurologic Surgery: No Orthopedic Surgery: Yes (L shoulder sx 10/29 R ankle sx in 1997) - Reproductive History Testicular Surgery: No - Immunization History Immunization Up to Date: Yes - Suicide/Smoking/Psychosocial Hx Smoking History: Current every day smoker Have you smoked in the past 12 months: Yes Number of Cigarettes Smoked Daily: 10 Information on smoking cessation initiated: No 'Breaking Loose' booklet given: 06/17/17 Hx Alcohol Use: No Drug/Substance Use Hx: No Substance Use Type: Cocaine, Marijuana Hx Substance Use Treatment: Yes (hx detox, rehab, in [facility]) Trauma Specific PMHX - Complaint Specific PMHX Arthritis: Yes (LEFT SHOULDER) Back Injury: No Neck Injury: No Hx Sacro Iliac Joint Dysfunction: No Review of Systems - Review of Systems Musculoskeletal: Yes: Joint Swelling *Physical Exam - Vital Signs Last Vital Signs Temp Pulse Resp BP Pulse Ox 97.8 F 94 H 17 162/99 95 01/10/19 16:11 01/10/19 16:11 01/10/19 16:11 01/10/19 16:11 01/10/19 16:11 - Physical Exam General Appearance: Yes: Appropriately Dressed, Mild Distress HEENT: positive: Normal Voice Neck: positive: Supple Respiratory/Chest: negative: Respiratory Distress Extremity: positive: Other (50% subungal hematoma to L 3rd digit, no swelling/ deformity to finger, FROMI) Procedures - Nail Trephination Method of Drainage: nail cauterized Sterile Dressing Applied: Yes Finger Splint: No Medical Decision Making - Medical Decision Making 01/10/19 17:04 43-year-old male, no significant history here with crush injury to right third digit after metal wrench fell onto finger today. See exam Subungal hematoma XR neg for fx -pain control -immediate relief w/ nail trephination -local wound care -dc w/ OTC pain meds prn and wound check as needed *DC/Admit/Observation/Transfer Diagnosis at time of Disposition: Subungual hematoma of digit of hand Qualifiers: Encounter type: initial encounter Qualified Code(s): S60.10XA - Contusion of unspecified finger with damage to nail, initial encounter - Discharge Dispostion Disposition: HOME Condition at time of disposition: Good - Referrals - Patient Instructions Printed Discharge Instructions: DI for Subungual Hematoma Additional Instructions: You sustained injury to your nail bed, which caused blood to accumulate under your nail. A small hole was burned into your nail to allow the release of blood. There is a chance that you can lose this nail and if you do, it will take 3-4 months to regrow. Take Motrin for pain as needed. Return to ER for signs of redness, swelling, pus or fever - Post Discharge Activity
== END 2019-01-10 17:13 | disposition home or self-care (01) ==
LOC: JERFT 16:07
PROC: 0H9QXZZ Drainage of Finger Nail, External Approach (ICD-10-PCS; principal; 2019-01-10)
DX: S60.131A Contusion of right middle finger with damage to nail, initial encounter (principal); W27.8XXA Contact with other nonpowered hand tool, initial encounter; Y93.89 Activity, other specified; Y92.89 Other specified places as the place of occurrence of the external cause; Y99.8 Other external cause status
CPT/HCPCS: 73140-TC-RT-FY; 99281-25

== ENCOUNTER 2019-04-28 08:16 | Emergency (ER) | payer OTHER ==
[2019-04-28 08:32] VITALS: BP 144/93; PULSE 70; TEMP 98.2; BMI 29.2
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
== END 2019-04-28 12:25 | disposition home or self-care (01) ==
LOC: JERFT 08:16
DX: R19.7 Diarrhea, unspecified (principal); I10 Essential (primary) hypertension; E78.5 Hyperlipidemia, unspecified; K21.9 Gastro-esophageal reflux disease without esophagitis
CPT/HCPCS: 87045; 87046; 87177; 87209; 87324; 87449; 99281-25

== ENCOUNTER 2019-08-14 15:11 | Emergency (ER) | payer OTHER ==
[2019-08-14 15:29] VITALS: BP 159/99; PULSE 75; TEMP 98; BMI 28.8
--- NOTE | 2019-08-14 15:31 | PDOC ---
Rapid Medical Evaluation Chief Complaint: Pain Time Seen by Provider: 08/14/19 15:25 Medical Evaluation: Allergies Allergy/AdvReac Type Severity Reaction Status Date / Time No Known Drug Allergies Allergy Verified 04/28/19 08:29 08/14/19 15:25 I have performed a brief in-person evaluation of this patient. The patient presents with a chief complaint of:left groin -pain on and off x 2 weeks but worsening. Pertinent physical exam findings: walking slowly due to pain I have ordered the following: US groin The patient will proceed to the ED for further evaluation. 08/14/19 15:30 Discharge Disposition - Diagnosis Groin pain Qualifiers: Laterality: left Qualified Code(s): R10.32 - Left lower quadrant pain - Discharge Dispostion Condition at time of disposition: Stable - Referrals - Patient Instructions - Post Discharge Activity
--- NOTE | 2019-08-14 16:42 | PDOC ---
History of Present Illness - General Chief Complaint: Pain Stated Complaint: ABD PAIN Time Seen by Provider: 08/14/19 15:25 - History of Present Illness Initial Comments: 08/14/19 16:38 CHIEF COMPLAINT: testicular pain HISTORY OF PRESENT ILLNESS: 54 yo M presents to ED with pain to L testicle x 2 weeks. Patient states the pain has been intermittent but worsening with each episode of pain, with today being the worse. Pain is described as a "hot, burning, sharp, jolt." Patient states he saw his PCP Dr. Rose a few days ago and was told he did not have a hernia. He denies hematuria, unusual discharge, or any urinary symptoms. He does report remote history of STD "but many years ago when I as a little kid." He is sexually active but reports that he gets STD testing regularly with his PCP and has not had any STDs in decades, including at his most recent visit. Patient denies any pain when with palpation of testicles and denies any aggravating symptoms. He states at this time the pain is mild but when the pain returns it is 10/10. No recent travel or sick contacts. PAST MEDICAL HISTORY: Denies past medical history FAMILY HISTORY: Denies SOCIAL HISTORY: Denies tobacco, alcohol, illicit drug use. SURGICAL HISTORY: Denies ALLERGIES: No known drug allergies REVIEW OF SYSTEMS General/Constitutional: Denies fever or chills. Denies weakness, weight change. HEENT: Denies change in vision. Denies ear pain or discharge. Denies sore throat. Cardiovascular: Denies chest pain or shortness of breath. Respiratory: Denies cough, wheezing, or hemoptysis. Gastrointestinal: Denies nausea, vomiting, diarrhea or constipation. Denies rectal bleeding. Genitourinary: Intermittent pain to L testicle. Musculoskeletal: Denies joint or muscle swelling or pain. Denies neck or back pain. Skin and breasts: Denies rash or easy bruising. Neurologic: Denies headache, vertigo, loss of consciousness, or loss of sensation. Psychiatric: Denies depression or anxiety. PHYSICAL EXAM General Appearance: Well-appearing, appropriately dressed. No apparent distress , no intoxication. HEENT: EOMI, PERRLA, normal ENT inspection, normal voice, TMs normal, pharynx normal. No conjunctival pallor. No photophobia, scleral icterus. Neck: Supple. Trachea midline. No tenderness, rigidity, carotid bruit, stridor , lymphadenopathy, or thyromegaly. Respiratory/Chest: Lungs CTAB. No shortness of breath, chest tenderness, respiratory distress, accessory muscle use. No crackles, rales, rhonchi, stridor , wheezing, dullness Cardiovascular: RRR. S1, S2. No JVD, murmur, bradycardia, tachycardia. Vascular Pulses: Dorsalis-Pedis (R): 2+, Dorsalis-Pedis (L): 2+ Gastrointestinal/Abdominal: Normal bowel sounds. Abdomen soft, non-distended. No tenderness or rebound tenderness. No organomegaly, pulsatile mass, guarding , hernia, hepatomegaly, splenomegaly. Genitourinary: No penile discharge, swelling, or erythema. No scrotal swelling or tenderness. No appreciable inguina hernia b/l. Musculoskeletal/Extremities: Normal inspection. FROM of all extremities, normal capillary refill. Pelvis Stable. No CVA tenderness. No tenderness to extremities, pedal edema, swelling, erythema or deformity. Integumentary: Appropriate color, dry, warm. 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 Fully oriented, alert. Appropriate mood/affect. Motor strength 5/5. No appreciable EOM palsy, facial droop or sensory deficit. Past History - Past Medical History Allergies/Adverse Reactions: Allergies Allergy/AdvReac Type Severity Reaction Status Date / Time No Known Drug Allergies Allergy Verified 04/28/19 08:29 Home Medications: Ambulatory Orders Diclofenac Sodium [Voltaren -] 75 mg PO ASDIR 07/08/18 Gabapentin [Neurontin -] 600 mg PO HS 07/08/18 Omeprazole 40 mg PO DAILY 07/08/18 Aspirin [Ecotrin] 81 mg PO DAILY 10/13/18 Atorvastatin Calcium 40 mg PO HS 10/13/18 Losartan Potassium 100 mg PO DAILY 10/13/18 Sodium Chloride Nasal [place] [[place] Nasal [place] -] 2 spray NS TID #1 spraybtl 04/28/19 Asthma: Yes Cardiac Disorders: No COPD: No Diabetes: No GI Disorders: Yes (GERD) Disorders: No HTN: Yes Kidney Stones: No Seizures: No - Surgical History Abdominal Surgery: No Appendectomy: No Cardiac Surgery: No Cholecystectomy: No Lung Surgery: No Neurologic Surgery: No Orthopedic Surgery: Yes (L shoulder sx 10/29 R ankle sx in 1997) - Reproductive History Testicular Surgery: No - Immunization History Immunization Up to Date: Yes - Psycho Social/Smoking Cessation Hx Smoking History: Current every day smoker Have you smoked in the past 12 months: No Number of Cigarettes Smoked Daily: 20 Information on smoking cessation initiated: No 'Breaking Loose' booklet given: 06/17/17 Hx Alcohol Use: No Drug/Substance Use Hx: No Substance Use Type: Cocaine, Marijuana Hx Substance Use Treatment: Yes (hx detox, rehab, in [facility]) Abd/GI Specific PMHX - Complaint Specific PMHX Hepatitis: No Pancreatitis: No *Physical Exam - Vital Signs Last Vital Signs Temp Pulse Resp BP Pulse Ox 98.0 F 75 19 159/99 98 08/14/19 15:25 08/14/19 15:25 08/14/19 15:25 08/14/19 15:25 08/14/19 15:25 Medical Decision Making - Medical Decision Making 08/14/19 16:51 54 yo M presents to ED with pain to L testicle x 2 weeks. -UA -US ultrasound suggestive of b/l testicular microlithiasis 08/14/19 19:06 On-call urologist Jerry paged re: follow up time frame. 08/14/19 19:37 Patient states he does not want to wait any longer and will find follow up himself. Dr. Edwards paged again. Patient requests to leave and that he will find a urologist to f/u with teddy himself. Advised patient to take medication as prescribed and follow up with urology within the next 2 days. Advised patient of signs and symptoms for return to ED. Patient verbalized understanding and agrees to plan. Discharge - Discharge Information Problems reviewed: Yes Clinical Impression/Diagnosis: Testicular microlithiasis Condition: Stable Disposition: HOME - Admission No - Follow up/Referral Referrals: Pearl Rose MD [Primary Care Provider] - Jacob Edwards MD [Staff Physician] - Estevan Devi MD [Staff Physician] - - Patient Discharge Instructions Patient Printed Discharge Instructions: DI for Testicular Pain - Post Discharge Activity
[2019-08-14 17:53] LABS: PH,URINE 5.5 (5.0-8.0); URINE APPEARANCE CLEAR; URINE BILIRUBIN NEGATIVE (NEGATIVE); URINE COLOR YELLOW; URINE GLUCOSE (UA) NEGATIVE (NEGATIVE); URINE KETONE TRACE (NEGATIVE); URINE LEUK ESTERASE NEGATIVE (NEGATIVE); URINE NITRITE NEGATIVE (NEGATIVE); URINE PROTEIN NEGATIVE (NEGATIVE)
== END 2019-08-14 20:05 | disposition home or self-care (01) ==
LOC: JER 15:11
DX: N50.89 Other specified disorders of the male genital organs (principal)
CPT/HCPCS: 76856-TC; 76870-TC; 81003; 99281-25

== ENCOUNTER 2020-03-23 14:52 | Emergency (ER) | payer OTHER ==
[2020-03-23] MEDS ORDERED: DIPHTH,PERTUSS(ACELL),TET 0.5 ML DISP.SYRIN IM ONE ×2 (15:00→15:05)
--- NOTE | 2020-03-23 15:00 | PDOC ---
Rapid Medical Evaluation Time Seen by Provider: 03/23/20 14:58 Medical Evaluation: Allergies Allergy/AdvReac Type Severity Reaction Status Date / Time No Known Drug Allergies Allergy Verified 04/28/19 08:29 03/23/20 14:58 Pt reports cutting his scalp on a thi piece of metal this morning. States the bleeding has stopped, but he does not remember the date of his last tetanus shot. He is requesting one at this time. He has no other complaints Exam: puncture wound to scalp Orders: boostrix Pt to proceed to the ER for further evaluation Discharge Disposition - Diagnosis Need for vaccination - Referrals - Patient Instructions - Post Discharge Activity
[2020-03-23 15:03] VITALS: BP 130/94; PULSE 91; TEMP 98.1; BMI 41.3
--- NOTE | 2020-03-23 15:24 | PDOC ---
History of Present Illness - General Chief Complaint: Abrasion Stated Complaint: LACERATION Time Seen by Provider: 03/23/20 14:58 History Source: Patient Exam Limitations: No Limitations - History of Present Illness Initial Comments: 03/23/20 15:18 Patient is a 54-year-old male with a history of hypertension and prediabetes who presents to the ED with an abrasion to his head. The patient states he cut his head at work on a thi piece of metal earlier this morning. He states he was not concerned about the cut but is unsure of when his last tetanus booster was. He denies any fevers or chills. He denies any bleeding. He presents today for a Boostrix booster. Past History - Medical History Allergies/Adverse Reactions: Allergies Allergy/AdvReac Type Severity Reaction Status Date / Time No Known Drug Allergies Allergy Verified 04/28/19 08:29 Home Medications: Ambulatory Orders Diclofenac Sodium [Voltaren -] 75 mg PO ASDIR 07/08/18 Gabapentin [Neurontin -] 600 mg PO HS 07/08/18 Omeprazole 40 mg PO DAILY 07/08/18 Aspirin [Ecotrin] 81 mg PO DAILY 10/13/18 Atorvastatin Calcium 40 mg PO HS 10/13/18 Losartan Potassium 100 mg PO DAILY 10/13/18 Sodium Chloride Nasal [place] [[place] -] 2 spray NS TID #1 spraybtl 04/28/19 Asthma: Yes Cardiac Disorders: No COPD: No Diabetes: No GI Disorders: Yes (GERD) Disorders: No HTN: Yes Kidney Stones: No Seizures: No - Surgical History Abdominal Surgery: No Appendectomy: No Cardiac Surgery: No Cholecystectomy: No Lung Surgery: No Neurologic Surgery: No Orthopedic Surgery: Yes (L shoulder sx 10/29 R ankle sx in 1997) - Reproductive History Testicular Surgery: No - Immunization History Immunization Up to Date: Yes - Psycho-Social/Smoking History Smoking History: Never smoked Have you smoked in the past 12 months: No Number of Cigarettes Smoked Daily: 20 'Breaking Loose' booklet given: 06/17/17 - Substance Abuse Hx (Audit-C & DAST Scrn) How often the patient has a drink containing alcohol: Never Score: In Men: 4 or > Positive; In Women: 3 or > Positive: 0 Screen Result (Pos requires Nsg. Audit-10AR): Negative Review of Systems - Review of Systems Comments:: 03/23/20 15:19 - Review of Systems Able to Perform ROS?: Yes Constitutional: No: Fever, Chills, Loss of Appetite, Night Sweats, Weakness HEENTM: No: Eye Pain, Vision changes, Ear Pain, Throat Pain, Throat Swelling, Mouth Pain, Difficulty Swallowing Respiratory: No: Cough, Shortness of Breath, Wheezing, Sputum Production Cardiac (ROS): No: Chest Pain, Chest Tightness, Palpitations, Irregular Heart Beat, Edema ABD/GI: No: Nausea, Vomiting, Abdominal Pain, Diarrhea : No Dysuria, No Hematuria, No Frequency, No Urgency Musculoskeletal: No: Muscle Pain, Back Pain, Joint Pain, Muscle Weakness, Neck Pain Integumentary: No: Lesions, Rash: positive: Scalp abrasion Neurological: No: Headache, Numbness, Tingling, Weakness, Speech Difficulties *Physical Exam - Vital Signs Last Vital Signs Temp Pulse Resp BP Pulse Ox 98.1 F 91 H 20 130/94 100 03/23/20 15:01 03/23/20 15:01 03/23/20 15:01 03/23/20 15:01 03/23/20 15:01 - Physical Exam 03/23/20 15:20 - Physical Exam General Appearance: Nourished, Appropriately Dressed, No Distress HEENT: EOMI, Normal Voice, Hearing Grossly Normal Neck: Supple, No Lymphadenopathy (R), No Lymphadenopathy (L), No Rigidity, No Decreased range of motion Respiratory/Chest: Lungs Clear, Normal Breath Sounds. No Respiratory Distress, No Accessory Muscle Use Cardiovascular: Regular Rhythm, Regular Rate, S1, S2 Musculoskeletal: Normal Inspection. No Decreased Range of Motion Extremity: Normal Capillary Refill, Normal Inspection Integumentary: Normal Color, Dry. No Rash; 2 mm abrasion to the left parietal region without any active bleeding. Scab appreciated. No tenderness to palpation and no sign of infection. Neurologic: land title examiner II-XII NML intact, Fully Oriented, Alert, Normal Mood/Affect, Normal Response ED Treatment Course - Medications Given in the ED: ED Medications Discontinued Medications Generic Name Dose Route Start Last Admin Trade Name Freq PRN Reason Stop Dose Admin Diphtheria/Tetanus/Acell Pertussis 0.5 ml 03/23/20 15:00 03/23/20 15:09 Boostrix - IM 03/23/20 15:01 0.5 ml .ONCE ONE Administration Medical Decision Making - Medical Decision Making 03/23/20 15:21 Assessment: Patient is a 54-year-old male with an abrasion to his scalp that he sustained on a thi piece of metal, he is requesting a tetanus booster. Plan: -Abrasion cleaned with Betadine and saline -Boostrix ordered from triage -Patient stable for discharge Discharge - Discharge Information Problems reviewed: Yes Clinical Impression/Diagnosis: Need for vaccination, Need for tetanus booster, Scalp abrasion, non-infected Condition: Stable Disposition: HOME - Follow up/Referral - Patient Discharge Instructions Patient Printed Discharge Instructions: DI for Abrasion, DTaP Vaccine Additional Instructions: Keep wound clean and dry. Wash the wound once daily with warm water and soap. You got a tetanus booster today which is good for 5 to 10 years. Follow-up with your primary doctor within 1 to 2 days for repeat evaluation. - Post Discharge Activity
== END 2020-03-23 15:45 | disposition home or self-care (01) ==
LOC: JERFT 14:52
PROC: 3E0234Z Introduction of Serum, Toxoid and Vaccine into Muscle, Percutaneous Approach (ICD-10-PCS; principal; 2020-03-23)
DX: Z23 Encounter for immunization (principal)
CPT/HCPCS: 90715; 99283-25

== ENCOUNTER 2021-03-27 05:32 | Emergency (ER) | payer OTHER ==
[2021-03-27 05:45] VITALS: BP 134/79; PULSE 60; BMI 41.3
[2021-03-27] MEDS ORDERED: FAMOTIDINE 20 MG/50 ML IVPB 20 MG/50 ML MG IVPB ONE ×2 (05:49→06:08)
[2021-03-27] MEDS ORDERED: ACETAMINOPHEN 1000 MG/100 ML VIAL (NON FORMULARY) IVPB ONE (05:49)
[2021-03-27] MEDS ORDERED: SODIUM CHLORIDE 0.9% 1000 ML INFUS.BAG IV ONE (05:49)
[2021-03-27] MEDS ORDERED: MAG HYDROX/AL HYDROX/SIMETH -MYLANTA- ORAL SUSPENSION PO ONE (05:49)
[2021-03-27] MEDS ORDERED: ONDANSETRON 4 MG/2 ML VIAL IVPUSH ONE (06:07)
[2021-03-27] MEDS ORDERED: ONDANSETRON 4 MG/2 ML VIAL ONE (06:08)
[2021-03-27] MEDS ORDERED: ACETAMINOPHEN INJECTION 100 ML IVPB ONE (06:08)
[2021-03-27] MEDS ORDERED: MAG HYDROX/AL HYDROX/SIMETH 30 ML UNIT-DOSE CUP ONE (06:21)
[2021-03-27 06:37] VITALS: TEMP 98.8
[2021-03-27 07:20] LABS: BASO % 0.2 % (0-2.0); EOS % 0.1 % (0-4.5); HEMATOCRIT 49.6 % (35.4-49); HEMOGLOBIN 17.1 GM/dL (11.7-16.9); LYMPH % 15.5 % (8-40); MCHC 34.6 g/dl (32.0-35.9); MEAN CELL VOLUME 92.7 fl (80-96); MONO % 12.7 % (3.8-10.2); NEUT % 71.5 % (42.8-82.8); PLATELET COUNT 227 10^3/uL (134-434); RBC 5.35 M/mm3 (4.00-5.60)
[2021-03-27 07:36] LABS: BLOOD UREA NITROGEN 17.6 mg/dL (7-18)
[2021-03-27 07:39] LABS: CREATININE 1.1 mg/dL (0.55-1.3)
[2021-03-27 07:40] LABS: BILIRUBIN,TOTAL 0.7 mg/dL (0.2-1); TOT PROT 8.1 g/dl (6.4-8.2)
[2021-03-27 08:13] LABS: URINE APPEARANCE CLEAR; URINE BILIRUBIN NEGATIVE (NEGATIVE); URINE COLOR YELLOW; URINE GLUCOSE (UA) NEGATIVE (NEGATIVE); URINE KETONE 2+ (NEGATIVE); URINE LEUK ESTERASE NEGATIVE (NEGATIVE); URINE NITRITE NEGATIVE (NEGATIVE); URINE PROTEIN TRACE (NEGATIVE)
== END 2021-03-27 09:55 | disposition home or self-care (01) ==
LOC: JER 05:32
PROC: 3E033GC Introduction of Other Therapeutic Substance into Peripheral Vein, Percutaneous Approach (ICD-10-PCS; principal; 2021-03-27)
DX: R10.33 Periumbilical pain (principal); R11.2 Nausea with vomiting, unspecified; R19.7 Diarrhea, unspecified
CPT/HCPCS: 36415; 74177-TC; 80053; 81003; 83690; 84132; 85025; 87086; 99285-25; J0131; Q9967

== ENCOUNTER 2022-06-19 16:10 | Emergency (ER) | payer OTHER ==
[2022-06-19 17:04] VITALS: BP 132/77; PULSE 66; RESP 20; TEMP 98.7; BMI 28.0
[2022-06-19] MEDS ORDERED: ALBUTEROL SO4 2.5/IPRATROPIUM 0.5 INH SOL 3 ML VIAL.NEB. NEB ONE (17:43)
== END 2022-06-19 19:46 | disposition home or self-care (01) ==
LOC: JER 16:10
DX: J45.40 Moderate persistent asthma, uncomplicated (principal); J06.9 Acute upper respiratory infection, unspecified
CPT/HCPCS: 71046-TC-FY; 99283-25

== ENCOUNTER 2022-07-04 14:05 | Emergency (ER) | payer OTHER ==
[2022-07-04 14:21] VITALS: BP 136/90; PULSE 75; RESP 18; TEMP 98.1; BMI 28.0
[2022-07-04] MEDS ORDERED: SODIUM CHLORIDE 1,000 ML IV STA (15:45)
[2022-07-04 16:19] LABS: HEMATOCRIT 44.3 % (35.4-49); HEMOGLOBIN 15.5 G/dL (11.7-16.9); MCH 32.7 pg (25.7-33.7); MCHC 34.9 g/dl (32.0-35.9); MEAN CELL VOLUME 93.7 fl (80-96); MEAN PLT VOLUME 8.6 fl (7.5-11.1); RBC 4.73 10^6/uL (4.00-5.60); RDW 13.8 % (11.9-15.9); WHITE BLOOD COUNT 4.9 10^3/uL (4.0-10.8)
[2022-07-04 16:20] LABS: BILIRUBIN,TOTAL 0.7 mg/dl (0.2-1); CALCIUM 9.2 mg/dl (8.5-10); CREATININE 0.9 mg/dl (0.55-1.3); TOT PROT 6.9 g/dl (6.4-8.2)
[2022-07-04 16:54] LABS: PLATELET ESTIMATE ADEQUATE
== END 2022-07-04 16:45 | disposition home or self-care (01) ==
LOC: FER 14:05
PROC: 3E0337Z Introduction of Electrolytic and Water Balance Substance into Peripheral Vein, Percutaneous Approach (ICD-10-PCS; principal; 2022-07-04)
DX: R35.89 Other polyuria (principal)
CPT/HCPCS: 36415; 80053; 81003; 85025; 87086; 99284-25

== ENCOUNTER 2022-09-07 06:28 | Emergency (ER) | payer OTHER ==
[2022-09-07 06:40] VITALS: RESP 18; TEMP 98.3; BMI 28.0
[2022-09-07 06:47] VITALS: BP 137/77; PULSE 69
[2022-09-07 08:01] LABS: HEMATOCRIT 42.7 % (35.4-49); HEMOGLOBIN 14.5 G/dL (11.7-16.9); MCH 32.2 pg (25.7-33.7); MCHC 33.8 g/dl (32.0-35.9); MEAN CELL VOLUME 95.2 fl (80-96); MEAN PLT VOLUME 8.8 fl (7.5-11.1); PLATELET COUNT 236.1 10^3/uL (134-434); RBC 4.49 10^6/uL (4.00-5.60); WHITE BLOOD COUNT 4.1 10^3/uL (4.0-10.8)
[2022-09-07 08:22] LABS: ALBUMIN 3.8 g/dl (3.4-5.0); BILIRUBIN,TOTAL 0.7 mg/dl (0.2-1); CALCIUM 8.7 mg/dl (8.5-10); TOT PROT 6.4 g/dl (6.4-8.2)
[2022-09-07 09:05] LABS: PLATELET ESTIMATE ADEQUATE
== END 2022-09-07 07:50 | disposition left against medical advice (07) ==
LOC: FER 06:28
DX: R07.89 Other chest pain (principal)
CPT/HCPCS: 36415; 80053; 81003; 84484; 85027; 93005; 99284-25

== ENCOUNTER 2022-09-11 06:59 | Emergency (ER) | payer OTHER ==
[2022-09-11 07:09] VITALS: BP 150/97; PULSE 74; RESP 16; TEMP 98; BMI 28.0
[2022-09-11] MEDS ORDERED: ALBUTEROL SO4 2.5/IPRATROPIUM 0.5 INH SOL 3 ML VIAL.NEB. NEB ONE ×3 (07:20→07:22)
[2022-09-11] MEDS ORDERED: predniSONE 20 MG TABLET (UD) PO ONE (07:21)
[2022-09-11] MEDS ORDERED: predniSONE 20 MG TABLET (UD) ONE (07:22)
== END 2022-09-11 09:08 | disposition home or self-care (01) ==
LOC: FER 06:59
PROC: 3E0F7GC Introduction of Other Therapeutic Substance into Respiratory Tract, Via Natural or Artificial Opening (ICD-10-PCS; principal; 2022-09-11)
DX: J45.909 Unspecified asthma, uncomplicated (principal)
CPT/HCPCS: 71046-TC-FY; 93005; 99285-25; C9803-CS; U0003; U0005

== ENCOUNTER 2023-01-17 08:09 | Emergency (ER) | payer OTHER ==
[2023-01-17 08:20] VITALS: BP 175/100; PULSE 90; RESP 20; TEMP 98.7; BMI 28.8
[2023-01-17 09:19] LABS: HEMATOCRIT 46.1 % (35.4-49); HEMOGLOBIN 15.7 G/dL (11.7-16.9); MCH 32.7 pg (25.7-33.7); MCHC 34.1 g/dl (32.0-35.9); MEAN CELL VOLUME 95.8 fl (80-96); MEAN PLT VOLUME 8.5 fl (7.5-11.1); PLATELET COUNT 208.2 10^3/uL (134-434); RBC 4.81 10^6/uL (4.00-5.60); RDW 13.7 % (11.9-15.9); WHITE BLOOD COUNT 5.2 10^3/uL (4.0-10.8)
[2023-01-17 09:26] LABS: ALBUMIN 4.4 g/dl (3.4-5.0); BILIRUBIN,TOTAL 0.3 mg/dl (0.2-1); CALCIUM 9.3 mg/dl (8.5-10); CREATININE 0.8 mg/dl (0.55-1.3); POTASSIUM 3.7 mmol/L (3.5-5.1); TOT PROT 7.5 g/dl (6.4-8.2)
[2023-01-17 09:30] LABS: PLATELET ESTIMATE ADEQUATE
== END 2023-01-17 09:48 | disposition home or self-care (01) ==
LOC: FER 08:09
DX: R05.9 Cough, unspecified (principal); R09.81 Nasal congestion; R07.89 Other chest pain; B34.9 Viral infection, unspecified; Z20.822 Contact with and (suspected) exposure to COVID-19
CPT/HCPCS: 0241U-QW; 36415; 71045-TC-FY; 80053; 84484; 85027; 93005; 99285-25

== ENCOUNTER 2024-04-07 17:51 | Inpatient (IN) | payer OTHER ==
[2024-04-07 18:21] VITALS: BMI 26.6
[2024-04-07] MEDS ORDERED: BISMUTH SUBSALICYLATE 524 MG/30 ML PO PRN (18:54)
[2024-04-07] MEDS ORDERED: ONDANSETRON *ODT* 4 MG TABLET SL PRN (18:54)
[2024-04-07] MEDS ORDERED: BENZONATATE 200 MG CAPSULE PO PRN (18:54)
[2024-04-07] MEDS ORDERED: MAGNESIUM HYDROX 2400MG/30ML ORAL SUSPENSION 30 ML CUP PO PRN (18:54)
[2024-04-07] MEDS ORDERED: BENZOCAINE/MENTHOL (CHLORASEPTIC ) LOZENGE MM PRN (18:54)
[2024-04-07] MEDS ORDERED: P-EPHED 60MG/TRIPROLIDI 2.5MG TABLET PO PRN (18:54)
[2024-04-07] MEDS ORDERED: ACETAMINOPHEN 325 MG TABLET (FP) PO PRN (18:54)
[2024-04-07] MEDS ORDERED: DICYCLOMINE HCL 10 MG CAPSULE PO PRN (18:54)
[2024-04-07] MEDS ORDERED: NICOTINE POLACRILEX 2 MG LOZENGE BC PRN (18:54)
[2024-04-07] MEDS ORDERED: POLYETHYLENE GLYCOL (HEALTHYLAX) 3350 17 GM PACKET PO PRN (18:54)
[2024-04-07] MEDS ORDERED: IBUPROFEN 400 MG TABLET (FP) PO PRN (18:54)
[2024-04-07] MEDS ORDERED: guaiFENesin 600 MG TABLET.ER (FP) PO PRN (18:54)
[2024-04-07] MEDS ORDERED: MAG HYDROX/AL HYDROX/SIMETH 30 ML UNIT-DOSE CUP PO PRN (18:54)
[2024-04-07] MEDS ORDERED: IBUPROFEN 600 MG TABLET (FP) PO PRN (18:54)
[2024-04-07] MEDS ORDERED: NICOTINE POLACRILEX 2 MG GUM BUC PRN (18:54)
[2024-04-07] MEDS ORDERED: LOPERAMIDE HCL 2 MG CAPSULE PO PRN (18:54)
[2024-04-07] MEDS: hydrOXYzine PAMOATE 25 MG CAPSULE (FP) PO PRN (21:35)
[2024-04-07] MEDS: THIAMINE 100 MG TABLET PO SCH (21:35)
[2024-04-07] MEDS: METHOCARBAMOL 500 MG TABLET PO PRN (21:35)
[2024-04-07] MEDS: MELATONIN 5 MG TABLETS PO SCH (21:35)
[2024-04-08] MEDS: ALBUTEROL SO4 HFA INHALER IH SCH (10:06)
[2024-04-08] MEDS: LOSARTAN POTASSIUM 50 MG TABLET PO SCH (10:06)
[2024-04-08] MEDS: amLODIPine BESYLATE 10 MG TABLET (FP) PO SCH (10:07)
[2024-04-08] MEDS: PRENATAL VITAMINS W/ FOLIC ACID TABLET (FP) PO SCH (10:07)
[2024-04-08] MEDS: NICOTINE 21 MG/24 HOURS TOPICAL PATCH TD SCH (10:07)
[2024-04-08] MEDS: PANTOPRAZOLE 20 MG TABLET PO SCH (10:07)
[2024-04-08] MEDS: TAMSULOSIN HCL 0.4 MG CAP PO SCH (10:07)
[2024-04-08 11:41] LABS: HEMATOCRIT 43.7 % (35.4-49); MCHC 34.3 g/dl (32.0-35.9); MEAN CELL VOLUME 96.3 fl (80-96); MEAN PLT VOLUME 9.5 fl (7.5-11.1); PLATELET COUNT 212 10^3/uL (134-434); RBC 4.54 M/mm3 (4.00-5.60); RDW 13.7 % (11.9-15.9); WHITE BLOOD COUNT 4.5 K/mm3 (4.0-10.0)
[2024-04-08 12:03] LABS: CHLORIDE 108 mmol/L (98-107); POTASSIUM 4.8 mmol/L (3.5-5.1); SODIUM 139 mmol/L (136-145)
[2024-04-08 12:10] LABS: ALBUMIN 3.5 g/dl (3.4-5.0); ANION GAP 5 mmol/L (4-13); BLOOD UREA NITROGEN 18.4 mg/dL (7-18); CALCIUM 9.3 mg/dL (8.5-10.1); CO2 27 mmol/L (21-32)
[2024-04-08 12:11] LABS: GLUCOSE,RANDOM 106 mg/dL (74-106)
[2024-04-08 12:13] LABS: SGOT/AST 20 U/L (15-37); SGPT/ALT 26 U/L (13-61)
[2024-04-08 12:14] LABS: BILIRUBIN,TOTAL 0.3 mg/dL (0.2-1)
[2024-04-08 12:15] LABS: ALK PHOS 74 U/L (45-117); TOT PROT 6.7 g/dl (6.4-8.2)
[2024-04-08 16:55] VITALS: RESP 18
[2024-04-08] MEDS: ATORVASTATIN CA 40 MG TABLET (FP) PO SCH (22:33)
[2024-04-09 08:48] VITALS: BP 122/73; PULSE 64; TEMP 97.5
== END 2024-04-09 09:00 | disposition home or self-care (01) | DRG 897 ==
LOC: YASAS 17:51 → Y3N 20:09
PROVIDERS: ADMIT Allergy & Immunology; ATTEND Surgery
PROC: HZ2ZZZZ Detoxification Services for Substance Abuse Treatment (ICD-10-PCS; principal; 2024-04-07)
DX: F10.230 Alcohol dependence with withdrawal, uncomplicated (principal); F10.220 Alcohol dependence with intoxication, uncomplicated; F16.90 Hallucinogen use, unspecified, uncomplicated; F17.210 Nicotine dependence, cigarettes, uncomplicated; F31.9 Bipolar disorder, unspecified; I10 Essential (primary) hypertension; E78.5 Hyperlipidemia, unspecified; J45.909 Unspecified asthma, uncomplicated
CPT/HCPCS: 36415; 80053; 80305; 80307; 85027; 86780; 93005; 93010

== ENCOUNTER 2024-06-25 15:02 | Emergency (ER) | payer OTHER ==
[2024-06-25 15:07] VITALS: BP 158/98; PULSE 77; RESP 20; TEMP 98.1; BMI 31.0
[2024-06-25] MEDS ORDERED: ALBUTEROL SO4 2.5/IPRATROPIUM 0.5 INH SOL 3 ML VIAL.NEB. NEB ONE ×2 (15:16→15:54)
[2024-06-25] MEDS ORDERED: DEXAMETHASONE SOD PHOSPHATE 10 MG/1 ML VIAL ONE (15:16)
[2024-06-25] MEDS ORDERED: AZITHROMYCIN 500 MG TABLET ONE (15:16)
[2024-06-25] MEDS: AZITHROMYCIN 250 MG TABLET PO ONE (15:20)
[2024-06-25] MEDS: DEXAMETHASONE SOD PHOSPHATE 10 MG/1 ML VIAL IVPUSH ONE (15:20)
[2024-06-25] MEDS: ALBUTEROL SO4 2.5/IPRATROPIUM 0.5 INH SOL 3 ML VIAL.NEB. NEB SCH (15:20)
[2024-06-25 15:46] LABS: HEMATOCRIT 47.6 % (35.4-49); HEMOGLOBIN 15.4 G/dL (11.7-16.9); MCH 31.8 pg (25.7-33.7); MCHC 32.4 g/dl (32.0-35.9); MEAN CELL VOLUME 97.9 fl (80-96); MEAN PLT VOLUME 8.9 fl (7.5-11.1); PLATELET COUNT 229.5 10^3/uL (134-434); RBC 4.86 10^6/uL (4.00-5.60); RDW 13.8 % (11.9-15.9); WHITE BLOOD COUNT 5.2 10^3/uL (4.0-10.8)
[2024-06-25 16:08] LABS: INR 0.94 (0.83-1.09); PROTHROMBIN TIME (PATIENT) 10.7 SEC (9.7-13.0)
[2024-06-25 16:11] LABS: ACTIVATED PTT 31.5 SECONDS (25.2-36.5)
[2024-06-25 16:14] LABS: ALBUMIN 4.5 g/dl (3.4-5.0); BILIRUBIN,TOTAL 0.3 mg/dl (0.2-1); CALCIUM 9.6 mg/dl (8.5-10.1); CREATININE 1.1 mg/dl (0.6-1.3); MAGNESIUM 1.7 mg/dL (1.8-2.4); POTASSIUM 4.2 mmol/L (3.5-5.1); TOT PROT 7.4 g/dl (6.4-8.2)
[2024-06-25 17:23] LABS: OVALOCYTE 1+; TEAR DROP CELLS 1+
[2024-06-25 17:24] LABS: PLATELET ESTIMATE ADEQUATE
[2024-06-25 18:31] LABS: N-TERMINAL BNP 7.1 pg/ml (5-125)
== END 2024-06-25 17:32 | disposition home or self-care (01) ==
LOC: FER 15:02
PROC: 3E033GC Introduction of Other Therapeutic Substance into Peripheral Vein, Percutaneous Approach (ICD-10-PCS; principal; 2024-06-25)
PROC: 3E0F7GC Introduction of Other Therapeutic Substance into Respiratory Tract, Via Natural or Artificial Opening (ICD-10-PCS; 2024-06-25)
DX: R06.02 Shortness of breath (principal); R05.9 Cough, unspecified; Z20.822 Contact with and (suspected) exposure to COVID-19
CPT/HCPCS: 0241U-QW; 36415; 71046-TC-FY; 80053; 83735; 83880; 84484; 85027; 85610; 85730; 93005; 99285-25; J1100